=== PATIENT | female | born 1980 | race Caucasian/White ===

== ENCOUNTER → 2019-07-11 08:35 | Outpatient (BNVA) | payer MEDICAID, SELFPAY | PROVIDERS: Family Provider Family Medicine; PCP Family Medicine; Visit Provider Psychiatry & Neurology Psychiatry | DX: F43.12 Post-traumatic stress disorder, chronic (principal); F33.2 Major depressive disorder, recurrent severe without psychotic features; F17.200 Nicotine dependence, unspecified, uncomplicated | CPT/HCPCS: 99204 ==

== ENCOUNTER → 2019-08-08 07:33 | Outpatient (BNVA) | payer MEDICAID, SELFPAY | PROVIDERS: Family Provider Family Medicine; PCP Family Medicine; Visit Provider Psychiatry & Neurology Psychiatry | DX: F33.2 Major depressive disorder, recurrent severe without psychotic features (principal); F43.12 Post-traumatic stress disorder, chronic; F17.200 Nicotine dependence, unspecified, uncomplicated | CPT/HCPCS: 99213 ==

== ENCOUNTER → 2019-09-20 07:39 | Outpatient (BNVA) | payer MEDICAID, SELFPAY | PROVIDERS: Family Provider Family Medicine; PCP Family Medicine; Visit Provider Psychiatry & Neurology Psychiatry | DX: F33.2 Major depressive disorder, recurrent severe without psychotic features (principal); F43.12 Post-traumatic stress disorder, chronic; F17.200 Nicotine dependence, unspecified, uncomplicated | CPT/HCPCS: 99214 ==

== ENCOUNTER → 2019-10-17 09:31 | Outpatient (BNVA) | payer MEDICAID, SELFPAY | PROVIDERS: Family Provider Family Medicine; PCP Family Medicine; Referring Provider Nurse Practitioner Family; Visit Provider Anesthesiology Pain Medicine | DX: M47.816 Spondylosis without myelopathy or radiculopathy, lumbar region (principal); M51.36 Other intervertebral disc degeneration, lumbar region; M54.16 Radiculopathy, lumbar region; E66.9 Obesity, unspecified; F17.210 Nicotine dependence, cigarettes, uncomplicated | CPT/HCPCS: 99204 ==

== ENCOUNTER 2019-10-30 07:44 | Outpatient (CLI) | payer MEDICAID, SELFPAY ==
--- NOTE | 2019-10-30 08:00 | XR_ITS ---
WS: [id number] LUMBAR SPINE FLEXION AND EXTENSION TECHNIQUE: 3 views of the lumbar spine: Lateral neutral, flexion, and extension views. CLINICAL INFORMATION: pain COMPARISON: None. FINDINGS: Slight exaggeration normal lumbar lordosis. No instability on flexion-extension. Moderate facet arthr opathy L5-S1. XR/XR lumbar spine f/e only [id number] IMPRESSION: 1. Slight exaggeration normal lumbar lordosis. 2. No instability on flexion-extension.
--- NOTE | 2019-10-30 08:35 | MR_ITS ---
WS: [id number] MRI LUMBAR SPINE NONCONTRAST TECHNIQUE: Sagittal T1, T2 and STIR imaging. Axial T1 and T2 imaging. CLINICAL INFORMATION: RADICULOPATHY, LUMBAR REGION COMPARISON: None. FINDINGS: Mild lumbar curve. No acute compression. No high-grade central canal stenosis. Tiny central protrusio ns at T10-T11 and T12-L1. Mild central canal stenosis at T10-11. L1-L2: Normal. L2-L3: Tiny left foraminal protrusion with slight contact of the exiting left L2 nerve root. Mild lef t foraminal narrowing. Spinal canal and foramen are patent. Mild facet arthropathy. L3-L4: Mild annular bulging. Mild facet arthropathy. Small left foraminal protrusion contacts the exi ting left L3 nerve root. Mild left foraminal narrowing. L4-L5: Mild annular bulging. Left foraminal disc osteophyte protrusion contacts the exiting left L4 n erve root with mild left foraminal narrowing. Right foramen is patent. Spinal canal is patent. Mild f acet arthropathy. L5-S1: Broad-based central disc protrusion contacts the traversing S1 nerve roots bilaterally. Mild f acet arthropathy. Foramen are patent. 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 MR/MR lumbar spine wo con* [id number] IMPRESSION: 1. Mild lumbar curve. No acute compression. No high-grade central canal stenos is. 2. Small left foraminal protrusions L2-3 and L3-4 with contact of the exiting left L2 and L3 nerve roots respectively, worse at left L3-4. 3. Left eccentric disc bulging L4-5 with mild left foraminal narrowing. 4. Broad-based shallow central protrusion L5-S1 slightly contacts the traversi ng S1 nerve roots bilaterally. 5. Small central protrusion T10-11 with mild central canal stenosis. 6. Mild to moderate facet arthropathy L3-L5.
== END 2019-10-30 07:45 | disposition home or self-care (01) ==
PROVIDERS: Family Provider Nurse Practitioner Family; PCP Nurse Practitioner Family; Visit Provider Anesthesiology Pain Medicine
DX: M54.16 Radiculopathy, lumbar region (principal); M51.26 Other intervertebral disc displacement, lumbar region; M51.27 Other intervertebral disc displacement, lumbosacral region; M51.24 Other intervertebral disc displacement, thoracic region; M47.816 Spondylosis without myelopathy or radiculopathy, lumbar region
CPT/HCPCS: 72120; 72148

== ENCOUNTER → 2019-11-01 10:44 | Outpatient (BNVA) | payer MEDICAID, SELFPAY | PROVIDERS: Family Provider Family Medicine; PCP Nurse Practitioner Family; Visit Provider Anesthesiology Pain Medicine | DX: M51.36 Other intervertebral disc degeneration, lumbar region (principal); M47.816 Spondylosis without myelopathy or radiculopathy, lumbar region; M54.9 Dorsalgia, unspecified; E66.9 Obesity, unspecified; F17.210 Nicotine dependence, cigarettes, uncomplicated | CPT/HCPCS: 99213; 99214 ==

== ENCOUNTER → 2019-11-08 08:03 | Outpatient (BNVA) | payer MEDICAID, SELFPAY | PROVIDERS: Family Provider Family Medicine; PCP Nurse Practitioner Family; Visit Provider Psychiatry & Neurology Psychiatry | DX: F33.2 Major depressive disorder, recurrent severe without psychotic features (principal); F43.12 Post-traumatic stress disorder, chronic | CPT/HCPCS: 99213 ==

== ENCOUNTER → 2019-11-29 12:38 | Outpatient (BNVA) | payer MEDICAID, SELFPAY | PROVIDERS: Family Provider Family Medicine; PCP Nurse Practitioner Family; Visit Provider Anesthesiology Pain Medicine | DX: M47.816 Spondylosis without myelopathy or radiculopathy, lumbar region (principal); M51.36 Other intervertebral disc degeneration, lumbar region; M54.9 Dorsalgia, unspecified; E66.9 Obesity, unspecified; F17.210 Nicotine dependence, cigarettes, uncomplicated; Z79.891 Long term (current) use of opiate analgesic | CPT/HCPCS: 99213 ==

== ENCOUNTER → 2019-12-10 08:04 | Outpatient (BNVA) | payer MEDICAID, SELFPAY | PROVIDERS: Family Provider Family Medicine; PCP Nurse Practitioner Family; Visit Provider Psychiatry & Neurology Psychiatry | DX: F43.12 Post-traumatic stress disorder, chronic (principal); F33.2 Major depressive disorder, recurrent severe without psychotic features; M54.16 Radiculopathy, lumbar region; M54.9 Dorsalgia, unspecified; Z79.891 Long term (current) use of opiate analgesic | CPT/HCPCS: 64483; 64484; 99213; J1030; J3490 ==

== ENCOUNTER → 2019-12-24 09:20 | Outpatient (BNVA) | payer MEDICAID, SELFPAY | PROVIDERS: Family Provider Family Medicine; PCP Nurse Practitioner Family; Visit Provider Anesthesiology Pain Medicine | DX: M51.36 Other intervertebral disc degeneration, lumbar region (principal); M47.816 Spondylosis without myelopathy or radiculopathy, lumbar region; M54.9 Dorsalgia, unspecified; E66.9 Obesity, unspecified; Z79.891 Long term (current) use of opiate analgesic | CPT/HCPCS: 99213 ==

== ENCOUNTER → 2020-01-09 09:10 | Outpatient (BNVA) | payer MEDICAID, SELFPAY | PROVIDERS: Family Provider Family Medicine; PCP Nurse Practitioner Family; Visit Provider Psychiatry & Neurology Psychiatry | DX: F43.12 Post-traumatic stress disorder, chronic (principal); F33.2 Major depressive disorder, recurrent severe without psychotic features | CPT/HCPCS: 99213 ==

== ENCOUNTER 2020-01-16 16:11 | Emergency (ER) | payer MEDICAID, SELFPAY ==
[2020-01-16 16:13] VITALS: BP 152/110; PULSE 115; RESP 18; TEMP 36.4; O2SAT 96; BMI 48.4
--- NOTE | 2020-01-16 16:24 | W.ED.CHESTPA ---
Documented by User: Rock Nicholson DO 01/19/20 19:18 HPI - Chest Pain General: Chief Complaint: Chest Pain Stated Complaint: dizzy/chest pains Time Seen by Provider: 01/16/20 16:13 History of Present Illness: HPI narrative: 39-year-old female presents complaining of chest pain and dizziness. The dizziness is been ongoing for a while but today began to get chest pain. She relates it to recent medication change. She has been very vertiginous she is also had a headache and some myalgias as well generally not feeling well flulike symptoms. Noticed that when she turns her head to the left or right she has increased symptoms. Her symptoms are primarily vertiginous. MD complaint: chest discomfort Onset (ago): day(s) Timing of current episode: episodic Onset: other (Change in posture or turning the head induces dizziness.) Pain location: left chest Pain radiation: none Quality: heaviness Relieving factors: nothing Exacerbating factors: nothing Associated symptoms: Reports nausea; Deny abdominal pain, diaphoresis, dyspnea, fever(s), leg edema, palpitations, sense of impending doom, syncope or vomiting Treatment prior to arrival: none Review of Systems Const: Denies: fever(s) or diaphoresis ENMT: Denies: throat pain, ear or mastoid pain, nasal discharge or nasal congestion Card: Denies: palpitations or syncope Resp: Denies: dyspnea GI: Reports: nausea; Denies: abdominal pain or vomiting : Denies: flank pain, difficulty voiding, dysuria, urinary frequency or urinary urgency Skin/Breast: Denies: rash or pruritus PFSH ED PFSH: Medical History Diabetes Fibromyalgia Hypercholesterolemia Hypertension Obesity Polycystic ovarian syndrome Surgical History H/O section x 2 H/O dilation and curettage H/O excision of dermoid cyst 04/02/19 FINAL DIAGNOSIS Skin, right thigh, excision: Benign skin with dermal fibrosis and mild chronic inflammation Comment- The changes noted microscopically are consistent with a history of a cyst which has a ruptured and caused fibrosis. No malignancy is identified. Edited by: 04/03/19 León BEARD H/O excision of mass infected sebaceous cyst thigh History of appendectomy History of excision of pilonidal cyst 05/10/18 FINAL DIAGNOSIS Skin and soft tissue, perineal, cyst excision: 1. Epidermal cyst with? ?intense, surrounding mixed inflammation and histiocytic giant cell reaction. Edited by: 05/12/18 - 0935 ANDERSON Family History Other Diabetes Heart disease Denies family history of Anesthesia complication Bleeding disorder Social History Smoking and tobacco status: former smoker Quit status (tobacco): has quit using tobacco Second hand smoke exposure: Yes Alcohol intake: never Household members: spouse Marital status: Current occupational status: disabled History of recent travel: No Physical Exam Const: COMMON NORMALS: no acute distress GENERAL APPEARANCE: cooperative and comfortable ORIENTATION/CONSCIOUSNESS: Yes awake, Yes oriented to person, Yes oriented to place and Yes oriented to time HENMT: COMMON NORMALS: normocephalic, atraumatic, hearing grossly normal bilaterally, external ears normal, EAC's normal, TM's normal bilaterally, Normal nasal mucous membranes and turbinates present, moist oral mucous membranes and oropharynx normal HEAD & SCALP: normocephalic and atraumatic NOSE: Normal nasal mucous membranes and turbinates present EXTERNAL EAR: Yes external ears normal EXTERNAL AUDITORY CANAL: EAC's normal TYMPANIC MEMBRANE: TM's normal bilaterally Eye: COMMON NORMALS: Equal, round and reactive pupils present, EOMs intact bilaterally, conjunctivae normal and no scleral icterus CONJUNCTIVA: Yes conjunctivae normal PUPIL: Yes Equal, round and reactive pupils present Neck/C-Spine: COMMON NORMALS: full ROM, no lymphadenopathy, supple and no JVD Lymph: LYMPHATIC: no lymphadenopathy noted and no lymphedema noted Resp: COMMON NORMALS: normal respiratory effort, No retractions, No use of accessory muscles and clear to auscultation bilaterally AUSCULTATION: clear to auscultation bilaterally Cardio: COMMON NORMALS: no JVD, regular rate, regular rhythm and No murmurs present (Cardio) RATE: regular rate RHYTHM: regular rhythm GI: COMMON NORMALS: Soft to palpation and No hepatosplenomegaly present AUSCULTATION: Yes normoactive bowel sounds PALPATION: Yes Soft to palpation, No Tenderness to palpation present (GI), No Guarding due to palpation present (GI) and Yes No hepatosplenomegaly present Extremity: COMMON NORMALS: normal to inspection, capillary refill normal, no clubbing, cyanosis or edema, no calf tenderness and no pedal edema Neuro: SENSORIUM/ORIENTATION: Yes oriented to person, Yes oriented to place and Yes oriented to time Skin: COMMON NORMALS: no rashes or lesions noted GENERAL SKIN EXAM: no rashes or lesions noted Course Vital Signs: Vital signs: Vital Signs Temperature 97.5 F L 01/16/20 16:13 Pulse Rate 92 01/16/20 21:06 Respiratory Rate 18 01/16/20 21:06 Blood Pressure 138/78 01/16/20 21:06 Pulse Oximetry 96 01/16/20 21:06 MDM - Chest Pain MDM Narrative: Medical decision making narrative: Care turned over to Dr. Guillaume at change of shift see his notes for definitive diagnosis and disposition Lab Data: Labs: Lab Results 01/16/20 01/16/20 01/16/20 Range/Units 16:52 16:52 16:52 WBC 9.1 (4.0-10.0) 10^3/ uL RBC 4.86 (4.1-5.3) 10^6/u L Hgb 15.1 (11.5-15.3) g/dL Hct 46.3 (37.0-47.0) % MCV 95.3 (81-99) fL MCH 31.1 (28.0-34.0) pg MCHC 32.6 (30.0-36.0) g/dL RDW 12.2 (12.1-15.1) % Plt Count 195 (130-400) 10^3/c mm MPV 11.4 H (7.4-10.4) fL Neut % (Auto) 54.1 % Lymph % (Auto) 37.4 % Hill % (Auto) 5.8 % Eos % (Auto) 1.9 % Baso % (Auto) 0.3 % Neut # (Auto) 4.92 (1.8-7.7) 10^3/u L Lymph # (Auto) 3.4 (0.8-4.8) 10^3/u L Hill # (Auto) 0.5 (0.2-0.9) 10^3/u L Eos # (Auto) 0.2 (0.0-0.8) 10^3/u L Baso # (Auto) 0.0 (0.0-0.1) 10^3/u L Nucleated RBC % (a uto) 0 % Nucleated RBCs # 0.0 /100WBC Fibrinogen 403 (174-498) mg/dL D-Dimer 1.39 H (0-0.59) ug/mIFE U Sodium 135 L (136-145) mmol/L Potassium 4.5 (3.5-5.1) mmol/L Chloride 99 (98-107) mmol/L Carbon Dioxide 24 (22-29) mmol/L Anion Gap 16.5 (5-19) BUN 11 (6-20) mg/dL Creatinine 0.5 (0.5-0.9) mg/dL GFR Calculation 136.0 H (90-130) mL/min Glucose 270 H (65-115) mg/dL Calculated Osmolal ity 289 (285-295) mOsm/k g Lactic Acid (0.5-2.2) mmol/L Lactic Acid (Sepsi s) (0.5-2.2) mmol/L Calcium 9.4 (8.5-10.5) mg/dL Ferritin 463 H (15-150) ng/mL Total Bilirubin 0.3 (0.15-1.2) mg/dL AST 40 H (0-32) U/L ALT 53 H (0-33) U/L Alkaline Phosphata se 100 (35-105) IU/L Lactate Dehydrogen ase 204 (135-214) U/L Troponin T Baselin e (0-10) ng/L Troponin T 120 Min [place] (0-10) ng/L Delta Troponin T (0-10) ABS# C-Reactive Protein 13.1 H (0.0-4.9) mg/L Total Protein 7.8 (6.6-8.7) g/dL Albumin 4.5 (3.5-5.2) g/dL Globulin 3.3 (1.3-4.6) g/dL Procalcitonin 0.06 (0-0.5) ng/mL Urine Color (Yellow) Urine Appearance (CLEAR) Urine pH (5-7) Ur Specific Gravit y (1.005-1.030) Urine Protein (Negative) Urine Glucose (UA) (Normal) Urine Ketones (Negative) Urine Blood (Negative) Urine Nitrate (Negative) Urine Bilirubin (Negative) Urine Urobilinogen (Negative) mg/dL Ur Leukocyte Shae ase (Negative) SARS-CoV-2 RNA (RT -PCR) (NOT DETECTED) SARS-CoV-2 Ag (Rap id) (Negative) 01/16/20 01/16/20 01/16/20 Range/Units 16:52 16:52 17:15 WBC (4.0-10.0) 10^3/ uL RBC (4.1-5.3) 10^6/u L Hgb (11.5-15.3) g/dL Hct (37.0-47.0) % MCV (81-99) fL MCH (28.0-34.0) pg MCHC (30.0-36.0) g/dL RDW (12.1-15.1) % Plt Count (130-400) 10^3/c mm MPV (7.4-10.4) fL Neut % (Auto) % Lymph % (Auto) % Hill % (Auto) % Eos % (Auto) % Baso % (Auto) % Neut # (Auto) (1.8-7.7) 10^3/u L Lymph # (Auto) (0.8-4.8) 10^3/u L Hill # (Auto) (0.2-0.9) 10^3/u L Eos # (Auto) (0.0-0.8) 10^3/u L Baso # (Auto) (0.0-0.1) 10^3/u L Nucleated RBC % (a uto) % Nucleated RBCs # /100WBC Fibrinogen (174-498) mg/dL D-Dimer (0-0.59) ug/mIFE U Sodium (136-145) mmol/L Potassium (3.5-5.1) mmol/L Chloride (98-107) mmol/L Carbon Dioxide (22-29) mmol/L Anion Gap (5-19) BUN (6-20) mg/dL Creatinine (0.5-0.9) mg/dL GFR Calculation (90-130) mL/min Glucose (65-115) mg/dL Calculated Osmolal ity (285-295) mOsm/k g Lactic Acid 3.5 H (0.5-2.2) mmol/L Lactic Acid (Sepsi s) (0.5-2.2) mmol/L Calcium (8.5-10.5) mg/dL Ferritin (15-150) ng/mL Total Bilirubin (0.15-1.2) mg/dL AST (0-32) U/L ALT (0-33) U/L Alkaline Phosphata se (35-105) IU/L Lactate Dehydrogen ase (135-214) U/L Troponin T Baselin e 6 (0-10) ng/L Troponin T 120 Min [place] (0-10) ng/L Delta Troponin T (0-10) ABS# C-Reactive Protein (0.0-4.9) mg/L Total Protein (6.6-8.7) g/dL Albumin (3.5-5.2) g/dL Globulin (1.3-4.6) g/dL Procalcitonin (0-0.5) ng/mL Urine Color (Yellow) Urine Appearance (CLEAR) Urine pH (5-7) Ur Specific Gravit y (1.005-1.030) Urine Protein (Negative) Urine Glucose (UA) (Normal) Urine Ketones (Negative) Urine Blood (Negative) Urine Nitrate (Negative) Urine Bilirubin (Negative) Urine Urobilinogen (Negative) mg/dL Ur Leukocyte Shae ase (Negative) SARS-CoV-2 RNA (RT -PCR) Not detected (NOT DETECTED) SARS-CoV-2 Ag (Rap id) (Negative) 01/16/20 01/16/20 01/16/20 Range/Units 18:36 19:15 19:15 WBC (4.0-10.0) 10^3/ uL RBC (4.1-5.3) 10^6/u L Hgb (11.5-15.3) g/dL Hct (37.0-47.0) % MCV (81-99) fL MCH (28.0-34.0) pg MCHC (30.0-36.0) g/dL RDW (12.1-15.1) % Plt Count (130-400) 10^3/c mm MPV (7.4-10.4) fL Neut % (Auto) % Lymph % (Auto) % Hill % (Auto) % Eos % (Auto) % Baso % (Auto) % Neut # (Auto) (1.8-7.7) 10^3/u L Lymph # (Auto) (0.8-4.8) 10^3/u L Hill # (Auto) (0.2-0.9) 10^3/u L Eos # (Auto) (0.0-0.8) 10^3/u L Baso # (Auto) (0.0-0.1) 10^3/u L Nucleated RBC % (a uto) % Nucleated RBCs # /100WBC Fibrinogen (174-498) mg/dL D-Dimer (0-0.59) ug/mIFE U Sodium (136-145) mmol/L Potassium (3.5-5.1) mmol/L Chloride (98-107) mmol/L Carbon Dioxide (22-29) mmol/L Anion Gap (5-19) BUN (6-20) mg/dL Creatinine (0.5-0.9) mg/dL GFR Calculation (90-130) mL/min Glucose (65-115) mg/dL Calculated Osmolal ity (285-295) mOsm/k g Lactic Acid (0.5-2.2) mmol/L Lactic Acid (Sepsi s) 3.3 H (0.5-2.2) mmol/L Calcium (8.5-10.5) mg/dL Ferritin (15-150) ng/mL Total Bilirubin (0.15-1.2) mg/dL AST (0-32) U/L ALT (0-33) U/L Alkaline Phosphata se (35-105) IU/L Lactate Dehydrogen ase (135-214) U/L Troponin T Baselin e (0-10) ng/L Troponin T 120 Min [place] 6.00 (0-10) ng/L Delta Troponin T 0 (0-10) ABS# C-Reactive Protein (0.0-4.9) mg/L Total Protein (6.6-8.7) g/dL Albumin (3.5-5.2) g/dL Globulin (1.3-4.6) g/dL Procalcitonin (0-0.5) ng/mL Urine Color (Yellow) Urine Appearance (CLEAR) Urine pH (5-7) Ur Specific Gravit y (1.005-1.030) Urine Protein (Negative) Urine Glucose (UA) (Normal) Urine Ketones (Negative) Urine Blood (Negative) Urine Nitrate (Negative) Urine Bilirubin (Negative) Urine Urobilinogen (Negative) mg/dL Ur Leukocyte Shae ase (Negative) SARS-CoV-2 RNA (RT -PCR) (NOT DETECTED) SARS-CoV-2 Ag (Rap id) Negative (Negative) 01/16/20 Range/Units 20:16 WBC (4.0-10.0) 10^3/ uL RBC (4.1-5.3) 10^6/u L Hgb (11.5-15.3) g/dL Hct (37.0-47.0) % MCV (81-99) fL MCH (28.0-34.0) pg MCHC (30.0-36.0) g/dL RDW (12.1-15.1) % Plt Count (130-400) 10^3/c mm MPV (7.4-10.4) fL Neut % (Auto) % Lymph % (Auto) % Hill % (Auto) % Eos % (Auto) % Baso % (Auto) % Neut # (Auto) (1.8-7.7) 10^3/u L Lymph # (Auto) (0.8-4.8) 10^3/u L Hill # (Auto) (0.2-0.9) 10^3/u L Eos # (Auto) (0.0-0.8) 10^3/u L Baso # (Auto) (0.0-0.1) 10^3/u L Nucleated RBC % (a uto) % Nucleated RBCs # /100WBC Fibrinogen (174-498) mg/dL D-Dimer (0-0.59) ug/mIFE U Sodium (136-145) mmol/L Potassium (3.5-5.1) mmol/L Chloride (98-107) mmol/L Carbon Dioxide (22-29) mmol/L Anion Gap (5-19) BUN (6-20) mg/dL Creatinine (0.5-0.9) mg/dL GFR Calculation (90-130) mL/min Glucose (65-115) mg/dL Calculated Osmolal ity (285-295) mOsm/k g Lactic Acid (0.5-2.2) mmol/L Lactic Acid (Sepsi s) (0.5-2.2) mmol/L Calcium (8.5-10.5) mg/dL Ferritin (15-150) ng/mL Total Bilirubin (0.15-1.2) mg/dL AST (0-32) U/L ALT (0-33) U/L Alkaline Phosphata se (35-105) IU/L Lactate Dehydrogen ase (135-214) U/L Troponin T Baselin e (0-10) ng/L Troponin T 120 Min [place] (0-10) ng/L Delta Troponin T (0-10) ABS# C-Reactive Protein (0.0-4.9) mg/L Total Protein (6.6-8.7) g/dL Albumin (3.5-5.2) g/dL Globulin (1.3-4.6) g/dL Procalcitonin (0-0.5) ng/mL Urine Color Yellow (Yellow) Urine Appearance Clear (CLEAR) Urine pH 7 (5-7) Ur Specific Gravit y 1.020 (1.005-1.030) Urine Protein Neg (Negative) Urine Glucose (UA) Norm (Normal) Urine Ketones Negative (Negative) Urine Blood Neg (Negative) Urine Nitrate Negative (Negative) Urine Bilirubin Neg (Negative) Urine Urobilinogen Norm (Negative) mg/dL Ur Leukocyte Shae ase Negative (Negative) SARS-CoV-2 RNA (RT -PCR) (NOT DETECTED) SARS-CoV-2 Ag (Rap id) (Negative) Discharge Plan Discharge Patient Disposition: Left Against Medical Advice Clinical Impression: Vertigo, Acute viral syndrome Condition: Stable Prescriptions: New Zofran 4 mg tablet 4 mg PO Q6H PRN (Reason: nausea and vomiting) Qty: 20 RF: 0 cefdinir 300 mg capsule 300 mg PO Q12H 10 Days Qty: 20 RF: 0 meclizine 25 mg tablet 25 mg PO QID PRN (Reason: dizziness) Qty: 30 RF: 0 No Action gabapentin 800 mg tablet 800 mg PO TID RF: 0 duloxetine 30 mg capsule,delayed release(DR/EC) 30 mg PO DAILY Qty: 30 RF: 2 duloxetine 60 mg capsule,delayed release(DR/EC) 60 mg PO DAILY Qty: 30 RF: 2 Bydureon 2 mg/0.65 mL pen injector 2 mg SUBCUT Q7D RF: 0 hydrocodone-acetaminophen [[place]] 5-325 mg tablet 1 tab PO TID 30 Days Qty: 90 RF: 0 tizanidine 4 mg tablet 4 mg PO BID PRN (Reason: muscle spasticity) Qty: 60 RF: 0 atorvastatin 10 mg tablet 10 mg PO DAILY RF: 0 Levemir U-100 Insulin 100 unit/mL solution 65 unit SUBCUT BID RF: 0 lisinopril 10 mg tablet 10 mg PO DAILY RF: 0 Narcan 4 mg/actuation spray,non-aerosol 4 mg INTRANASAL Q2M PRN (Reason: OVERDOSE) RF: 0 insulin aspart U-100 [Novolog U-100 Insulin aspart] 100 unit/mL solution 22 unit SUBCUT .COMPLEX RF: 0 glucagon HCl 1 mg/mL recon soln 1 mg SUBCUT DAILY PRN (Reason: hypoglycemia) RF: 0 meloxicam [Mobic] 7.5 mg tablet 7.5 mg PO DAILY RF: 0 betamethasone valerate 0.1 % cream 1 applic TOPICAL BID PRN (Reason: Skin Irritation) RF: 0 metformin 1,000 mg tablet 1,000 mg PO BID RF: 0 fenofibrate 54 mg Tablet 54 mg PO DAILY RF: 0 Discharge Orders: Discharge Order (Routine); Ordered 01/16/20 Ordered By: Stephanie Rhodes Referrals: Radha Garces MD [Family Provider] - 1-3 days BLANCA VALLE FNP [Primary Care Provider] - Discharge Diet: Advance as tolerated Discharge Activity: Increase activity as tolerated Patient Instructions: Vertigo (ED), Viral Syndrome (ED), Dizziness (ED) Activity Restrictions/Additional Instructions: You're leaving AGAINST MEDICAL ADVICE and are at risk for or severe permanent disability by doing so. You are more than welcome to return at any time for recheck and for further evaluation and care suture change you change your mind. A complete evaluation has not been performed to see what is causing all of your symptoms. You put yourself at risk by leaving without complete evaluation. If you change your mind and wish to return you are welcome to do so at any time. Be certain to follow-up with your doctor as soon as possible for recheck. Stand Alone Forms: Against Medical Advice Discharge Date/Time: 01/16/20 21:18 Sign Out Sign Out Data: Patient Sign Out occurred on 01/16/20 at 18:21. Patient's care was discussed, and care was transferred from to Stephanie Rhodes. Coding Level of Care Code ED [employer] for Chg Fwd Exam Comprehensive Documented by User: Stephanie Rhodes 01/16/20 21:32 HPI - Chest Pain General: Chief Complaint: Chest Pain Stated Complaint: dizzy/chest pains Time Seen by Provider: 01/16/20 16:13 PFSH ED PFSH: Medical History Diabetes Fibromyalgia Hypercholesterolemia Hypertension Obesity Polycystic ovarian syndrome Surgical History H/O section x 2 H/O dilation and curettage H/O excision of dermoid cyst 04/02/19 FINAL DIAGNOSIS Skin, right thigh, excision: Benign skin with dermal fibrosis and mild chronic inflammation Comment- The changes noted microscopically are consistent with a history of a cyst which has a ruptured and caused fibrosis. No malignancy is identified. Edited by: 04/03/19 - 1057 CHIRAG H/O excision of mass infected sebaceous cyst thigh History of appendectomy History of excision of pilonidal cyst 05/10/18 FINAL DIAGNOSIS Skin and soft tissue, perineal, cyst excision: 1. Epidermal cyst with? ?intense, surrounding mixed inflammation and histiocytic giant cell reaction. Edited by: 05/12/18 - 1265 ANDERSON Family History Other Diabetes Heart disease Denies family history of Anesthesia complication Bleeding disorder Social History Smoking and tobacco status: former smoker Quit status (tobacco): has quit using tobacco Second hand smoke exposure: Yes Alcohol intake: never Household members: spouse Marital status: Current occupational status: disabled History of recent travel: No Course Vital Signs: Vital signs: Vital Signs Temperature 97.5 F L 01/16/20 16:13 Pulse Rate 92 01/16/20 21:06 Respiratory Rate 18 01/16/20 21:06 Blood Pressure 138/78 01/16/20 21:06 Pulse Oximetry 96 01/16/20 21:06 MDM - Chest Pain MDM Narrative: Medical decision making narrative: 1844 -Case turned over to me at change of shift from Dr. Nicholson. Please see his note for his history, physical exam and medical decision-making notes. Patient claims to me that she has had vertigo symptoms present for the past 2 weeks. She describes room spinning dizziness with nausea made worse by moving her head in certain positions. She also complains today her symptoms are worse and she has generalized malaise. She has a cough that is been chronic mostly at night she admits to being a previous smoker. The chest pain described as sharp in nature in the mid chest that is made worse with movement. It is worse in certain positions. She denies any chest pain at rest. She denies fever, loss of sense of taste, loss of sense of smell or sore throat. To me the patient's primary complaint is worsening dizziness today. 2051 -the patient at this time is insisting upon discharge. She states that she wants to go home and take her regular medicines as she needs them for her discomfort. She declines to stay and let me medicate her for pain. Patient states that this time she adamantly wants to be discharged. I have informed her that I am still awaiting some lab results including a repeat lactate to rule out serious cause of infection. Patient refuses to stay. She believes she will be fine at home. Her second lactate did improve and densa with hardly any fluids being given. She is now had almost 2 L of fluid and is feeling better. She is ambulatory here and her dizziness is better. The patient at this time says she will follow-up with her doctors but she declines any further evaluation and care. She clearly has the capacity to make this decision. She shows no sign of impairment. She is asked multiple questions regarding her care and reason with this information and still decided that she wants to be discharged. The patient was welcome to return if she changed her mind. Lab Data: Attestation: I reviewed the patient's lab results. Labs: Lab Results 01/16/20 01/16/20 01/16/20 Range/Units 16:52 16:52 16:52 WBC 9.1 (4.0-10.0) 10^3/ uL RBC 4.86 (4.1-5.3) 10^6/u L Hgb 15.1 (11.5-15.3) g/dL Hct 46.3 (37.0-47.0) % MCV 95.3 (81-99) fL MCH 31.1 (28.0-34.0) pg MCHC 32.6 (30.0-36.0) g/dL RDW 12.2 (12.1-15.1) % Plt Count 195 (130-400) 10^3/c mm MPV 11.4 H (7.4-10.4) fL Neut % (Auto) 54.1 % Lymph % (Auto) 37.4 % Hill % (Auto) 5.8 % Eos % (Auto) 1.9 % Baso % (Auto) 0.3 % Neut # (Auto) 4.92 (1.8-7.7) 10^3/u L Lymph # (Auto) 3.4 (0.8-4.8) 10^3/u L Hill # (Auto) 0.5 (0.2-0.9) 10^3/u L Eos # (Auto) 0.2 (0.0-0.8) 10^3/u L Baso # (Auto) 0.0 (0.0-0.1) 10^3/u L Nucleated RBC % (a uto) 0 % Nucleated RBCs # 0.0 /100WBC Fibrinogen 403 (174-498) mg/dL D-Dimer 1.39 H (0-0.59) ug/mIFE U Sodium 135 L (136-145) mmol/L Potassium 4.5 (3.5-5.1) mmol/L Chloride 99 (98-107) mmol/L Carbon Dioxide 24 (22-29) mmol/L Anion Gap 16.5 (5-19) BUN 11 (6-20) mg/dL Creatinine 0.5 (0.5-0.9) mg/dL GFR Calculation 136.0 H (90-130) mL/min Glucose 270 H (65-115) mg/dL Calculated Osmolal ity 289 (285-295) mOsm/k g Lactic Acid (0.5-2.2) mmol/L Lactic Acid (Sepsi s) (0.5-2.2) mmol/L Calcium 9.4 (8.5-10.5) mg/dL Ferritin 463 H (15-150) ng/mL Total Bilirubin 0.3 (0.15-1.2) mg/dL AST 40 H (0-32) U/L ALT 53 H (0-33) U/L Alkaline Phosphata se 100 (35-105) IU/L Lactate Dehydrogen ase 204 (135-214) U/L Troponin T Baselin e (0-10) ng/L Troponin T 120 Min [place] (0-10) ng/L Delta Troponin T (0-10) ABS# C-Reactive Protein 13.1 H (0.0-4.9) mg/L Total Protein 7.8 (6.6-8.7) g/dL Albumin 4.5 (3.5-5.2) g/dL Globulin 3.3 (1.3-4.6) g/dL Procalcitonin 0.06 (0-0.5) ng/mL Urine Color (Yellow) Urine Appearance (CLEAR) Urine pH (5-7) Ur Specific Gravit y (1.005-1.030) Urine Protein (Negative) Urine Glucose (UA) (Normal) Urine Ketones (Negative) Urine Blood (Negative) Urine Nitrate (Negative) Urine Bilirubin (Negative) Urine Urobilinogen (Negative) mg/dL Ur Leukocyte Shae ase (Negative) SARS-CoV-2 RNA (RT -PCR) (NOT DETECTED) SARS-CoV-2 Ag (Rap id) (Negative) 01/16/20 01/16/20 01/16/20 Range/Units 16:52 16:52 17:15 WBC (4.0-10.0) 10^3/ uL RBC (4.1-5.3) 10^6/u L Hgb (11.5-15.3) g/dL Hct (37.0-47.0) % MCV (81-99) fL MCH (28.0-34.0) pg MCHC (30.0-36.0) g/dL RDW (12.1-15.1) % Plt Count (130-400) 10^3/c mm MPV (7.4-10.4) fL Neut % (Auto) % Lymph % (Auto) % Hill % (Auto) % Eos % (Auto) % Baso % (Auto) % Neut # (Auto) (1.8-7.7) 10^3/u L Lymph # (Auto) (0.8-4.8) 10^3/u L Hill # (Auto) (0.2-0.9) 10^3/u L Eos # (Auto) (0.0-0.8) 10^3/u L Baso # (Auto) (0.0-0.1) 10^3/u L Nucleated RBC % (a uto) % Nucleated RBCs # /100WBC Fibrinogen (174-498) mg/dL D-Dimer (0-0.59) ug/mIFE U Sodium (136-145) mmol/L Potassium (3.5-5.1) mmol/L Chloride (98-107) mmol/L Carbon Dioxide (22-29) mmol/L Anion Gap (5-19) BUN (6-20) mg/dL Creatinine (0.5-0.9) mg/dL GFR Calculation (90-130) mL/min Glucose (65-115) mg/dL Calculated Osmolal ity (285-295) mOsm/k g Lactic Acid 3.5 H (0.5-2.2) mmol/L Lactic Acid (Sepsi s) (0.5-2.2) mmol/L Calcium (8.5-10.5) mg/dL Ferritin (15-150) ng/mL Total Bilirubin (0.15-1.2) mg/dL AST (0-32) U/L ALT (0-33) U/L Alkaline Phosphata se (35-105) IU/L Lactate Dehydrogen ase (135-214) U/L Troponin T Baselin e 6 (0-10) ng/L Troponin T 120 Min [place] (0-10) ng/L Delta Troponin T (0-10) ABS# C-Reactive Protein (0.0-4.9) mg/L Total Protein (6.6-8.7) g/dL Albumin (3.5-5.2) g/dL Globulin (1.3-4.6) g/dL Procalcitonin (0-0.5) ng/mL Urine Color (Yellow) Urine Appearance (CLEAR) Urine pH (5-7) Ur Specific Gravit y (1.005-1.030) Urine Protein (Negative) Urine Glucose (UA) (Normal) Urine Ketones (Negative) Urine Blood (Negative) Urine Nitrate (Negative) Urine Bilirubin (Negative) Urine Urobilinogen (Negative) mg/dL Ur Leukocyte Shae ase (Negative) SARS-CoV-2 RNA (RT -PCR) Not detected (NOT DETECTED) SARS-CoV-2 Ag (Rap id) (Negative) 01/16/20 01/16/20 01/16/20 Range/Units 18:36 19:15 19:15 WBC (4.0-10.0) 10^3/ uL RBC (4.1-5.3) 10^6/u L Hgb (11.5-15.3) g/dL Hct (37.0-47.0) % MCV (81-99) fL MCH (28.0-34.0) pg MCHC (30.0-36.0) g/dL RDW (12.1-15.1) % Plt Count (130-400) 10^3/c mm MPV (7.4-10.4) fL Neut % (Auto) % Lymph % (Auto) % Hill % (Auto) % Eos % (Auto) % Baso % (Auto) % Neut # (Auto) (1.8-7.7) 10^3/u L Lymph # (Auto) (0.8-4.8) 10^3/u L Hill # (Auto) (0.2-0.9) 10^3/u L Eos # (Auto) (0.0-0.8) 10^3/u L Baso # (Auto) (0.0-0.1) 10^3/u L Nucleated RBC % (a uto) % Nucleated RBCs # /100WBC Fibrinogen (174-498) mg/dL D-Dimer (0-0.59) ug/mIFE U Sodium (136-145) mmol/L Potassium (3.5-5.1) mmol/L Chloride (98-107) mmol/L Carbon Dioxide (22-29) mmol/L Anion Gap (5-19) BUN (6-20) mg/dL Creatinine (0.5-0.9) mg/dL GFR Calculation (90-130) mL/min Glucose (65-115) mg/dL Calculated Osmolal ity (285-295) mOsm/k g Lactic Acid (0.5-2.2) mmol/L Lactic Acid (Sepsi s) 3.3 H (0.5-2.2) mmol/L Calcium (8.5-10.5) mg/dL Ferritin (15-150) ng/mL Total Bilirubin (0.15-1.2) mg/dL AST (0-32) U/L ALT (0-33) U/L Alkaline Phosphata se (35-105) IU/L Lactate Dehydrogen ase (135-214) U/L Troponin T Baselin e (0-10) ng/L Troponin T 120 Min [place] 6.00 (0-10) ng/L Delta Troponin T 0 (0-10) ABS# C-Reactive Protein (0.0-4.9) mg/L Total Protein (6.6-8.7) g/dL Albumin (3.5-5.2) g/dL Globulin (1.3-4.6) g/dL Procalcitonin (0-0.5) ng/mL Urine Color (Yellow) Urine Appearance (CLEAR) Urine pH (5-7) Ur Specific Gravit y (1.005-1.030) Urine Protein (Negative) Urine Glucose (UA) (Normal) Urine Ketones (Negative) Urine Blood (Negative) Urine Nitrate (Negative) Urine Bilirubin (Negative) Urine Urobilinogen (Negative) mg/dL Ur Leukocyte Shae ase (Negative) SARS-CoV-2 RNA (RT -PCR) (NOT DETECTED) SARS-CoV-2 Ag (Rap id) Negative (Negative) 01/16/20 Range/Units 20:16 WBC (4.0-10.0) 10^3/ uL RBC (4.1-5.3) 10^6/u L Hgb (11.5-15.3) g/dL Hct (37.0-47.0) % MCV (81-99) fL MCH (28.0-34.0) pg MCHC (30.0-36.0) g/dL RDW (12.1-15.1) % Plt Count (130-400) 10^3/c mm MPV (7.4-10.4) fL Neut % (Auto) % Lymph % (Auto) % Hill % (Auto) % Eos % (Auto) % Baso % (Auto) % Neut # (Auto) (1.8-7.7) 10^3/u L Lymph # (Auto) (0.8-4.8) 10^3/u L Hill # (Auto) (0.2-0.9) 10^3/u L Eos # (Auto) (0.0-0.8) 10^3/u L Baso # (Auto) (0.0-0.1) 10^3/u L Nucleated RBC % (a uto) % Nucleated RBCs # /100WBC Fibrinogen (174-498) mg/dL D-Dimer (0-0.59) ug/mIFE U Sodium (136-145) mmol/L Potassium (3.5-5.1) mmol/L Chloride (98-107) mmol/L Carbon Dioxide (22-29) mmol/L Anion Gap (5-19) BUN (6-20) mg/dL Creatinine (0.5-0.9) mg/dL GFR Calculation (90-130) mL/min Glucose (65-115) mg/dL Calculated Osmolal ity (285-295) mOsm/k g Lactic Acid (0.5-2.2) mmol/L Lactic Acid (Sepsi s) (0.5-2.2) mmol/L Calcium (8.5-10.5) mg/dL Ferritin (15-150) ng/mL Total Bilirubin (0.15-1.2) mg/dL AST (0-32) U/L ALT (0-33) U/L Alkaline Phosphata se (35-105) IU/L Lactate Dehydrogen ase (135-214) U/L Troponin T Baselin e (0-10) ng/L Troponin T 120 Min [place] (0-10) ng/L Delta Troponin T (0-10) ABS# C-Reactive Protein (0.0-4.9) mg/L Total Protein (6.6-8.7) g/dL Albumin (3.5-5.2) g/dL Globulin (1.3-4.6) g/dL Procalcitonin (0-0.5) ng/mL Urine Color Yellow (Yellow) Urine Appearance Clear (CLEAR) Urine pH 7 (5-7) Ur Specific Gravit y 1.020 (1.005-1.030) Urine Protein Neg (Negative) Urine Glucose (UA) Norm (Normal) Urine Ketones Negative (Negative) Urine Blood Neg (Negative) Urine Nitrate Negative (Negative) Urine Bilirubin Neg (Negative) Urine Urobilinogen Norm (Negative) mg/dL Ur Leukocyte Shae ase Negative (Negative) SARS-CoV-2 RNA (RT -PCR) (NOT DETECTED) SARS-CoV-2 Ag (Rap id) (Negative) Imaging Data^: CXR: Attestation: I personally reviewed and interpreted this imaging study as follows: My impression: No acute cardiopulmonary finding CT Chest: Radiologist's impression: [address] [address] [address] Scan Report Signed Patient: Bre Calix Unit #: [id number] : 1980 Age/Sex: 39 / F ADM Date: 01/16/20 Loc: ER Room/Bed: Attending Dr: Ordering Provider/Ordering MD: Rock Nicholson DO Date of Service: 01/16/20 Procedure(s): CT angio chest PE [facility] [address] Accession Number(s): [id number] Report Number: [id number] PROCEDURE INFORMATION: Exam: CT Angiography Chest With Contrast Exam date and time: 01/16/2020 6:14 PM Age: 39 years old Clinical indication: Cough and shortness of breath; Additional info: Cehst heaviness, dyspnea TECHNIQUE: Imaging protocol: Computed tomographic angiography of the chest with intravenous contrast. 3D rendering (Not supervised by radiologist): MIP and/or 3D reconstructed images were created by the technologist. Radiation optimization: All CT scans at this facility use at least one of these dose optimization techniques: automated exposure control; mA and/or kV adjustment per patient size (includes targeted exams where dose is matched to clinical indication); or iterative reconstruction. Contrast material: OMNI 350; Contrast volume: 69 ml; Contrast route: INTRAVENOUS (IV); COMPARISON: CR XR chest 1V portable [id number] 01/16/2020 5:11 PM RADIATION DOSE METRICS: Total DLP (mGy-cm): 577.91 FINDINGS: Pulmonary arteries: Normal. No pulmonary emboli. Aorta: Unremarkable. No aortic aneurysm. No aortic dissection. Lungs: Unremarkable. No consolidation. No masses. Pleural space: Unremarkable. No pneumothorax. No pleural effusion. Heart: Unremarkable. No cardiomegaly. No pericardial effusion. Lymph nodes: Unremarkable. No enlarged lymph nodes. Bones/joints: There is no evidence for acute fracture or malalignment. Degenerative change is identified in the spine. Soft tissues: Unremarkable. CT/CT angio chest PE protcl [id number] IMPRESSION: There is no evidence for a pulmonary embolus. Radiation Dose CTDIVOL = (mGy): DLP = 577.91 (mGy-cm) Dictated By: Cris Espinoza MD Signed By: Cris Espinoza MD Signed Date/Time: 01/16/201836 DD/ 35 EKG Data^: EKG 1: Attestation: I personally reviewed and interpreted this EKG as follows: EKG interpretation date: 01/16/20 EKG interpretation time: 16:20 Interpretation: Normal sinus rhythm at 91 beats a minute, no blocks, normal intervals, normal axis, nonspecific ST-T wave changes, low voltages. EKG 2: Attestation: I personally reviewed and interpreted this EKG as follows: EKG interpretation date: 01/16/20 EKG interpretation time: 19:26 Interpretation: Normal sinus rhythm at 80 beats minute, normal axis, no blocks, normal intervals. Nonspecific ST-T wave changes. Discharge Plan Discharge Patient Disposition: Left Against Medical Advice Clinical Impression: Vertigo, Acute viral syndrome Condition: Stable Prescriptions: New Zofran 4 mg tablet 4 mg PO Q6H PRN (Reason: nausea and vomiting) Qty: 20 RF: 0 cefdinir 300 mg capsule 300 mg PO Q12H 10 Days Qty: 20 RF: 0 meclizine 25 mg tablet 25 mg PO QID PRN (Reason: dizziness) Qty: 30 RF: 0 No Action gabapentin 800 mg tablet 800 mg PO TID RF: 0 duloxetine 30 mg capsule,delayed release(DR/EC) 30 mg PO DAILY Qty: 30 RF: 2 duloxetine 60 mg capsule,delayed release(DR/EC) 60 mg PO DAILY Qty: 30 RF: 2 Bydureon 2 mg/0.65 mL pen injector 2 mg SUBCUT Q7D RF: 0 hydrocodone-acetaminophen [[place]] 5-325 mg tablet 1 tab PO TID 30 Days Qty: 90 RF: 0 tizanidine 4 mg tablet 4 mg PO BID PRN (Reason: muscle spasticity) Qty: 60 RF: 0 atorvastatin 10 mg tablet 10 mg PO DAILY RF: 0 Levemir U-100 Insulin 100 unit/mL solution 65 unit SUBCUT BID RF: 0 lisinopril 10 mg tablet 10 mg PO DAILY RF: 0 Narcan 4 mg/actuation spray,non-aerosol 4 mg INTRANASAL Q2M PRN (Reason: OVERDOSE) RF: 0 insulin aspart U-100 [Novolog U-100 Insulin aspart] 100 unit/mL solution 22 unit SUBCUT .COMPLEX RF: 0 glucagon HCl 1 mg/mL recon soln 1 mg SUBCUT DAILY PRN (Reason: hypoglycemia) RF: 0 meloxicam [Mobic] 7.5 mg tablet 7.5 mg PO DAILY RF: 0 betamethasone valerate 0.1 % cream 1 applic TOPICAL BID PRN (Reason: Skin Irritation) RF: 0 metformin 1,000 mg tablet 1,000 mg PO BID RF: 0 fenofibrate 54 mg Tablet 54 mg PO DAILY RF: 0 Discharge Orders: Discharge Order (Routine); Ordered 01/16/20 Ordered By: Stephanie Rhodes Referrals: Radha Garces MD [Family Provider] - 1-3 days BLANCA VALLE FNP [Primary Care Provider] - Discharge Diet: Advance as tolerated Discharge Activity: Increase activity as tolerated Patient Instructions: Vertigo (ED), Viral Syndrome (ED), Dizziness (ED) Activity Restrictions/Additional Instructions: You're leaving AGAINST MEDICAL ADVICE and are at risk for or severe permanent disability by doing so. You are more than welcome to return at any time for recheck and for further evaluation and care suture change you change your mind. A complete evaluation has not been performed to see what is causing all of your symptoms. You put yourself at risk by leaving without complete evaluation. If you change your mind and wish to return you are welcome to do so at any time. Be certain to follow-up with your doctor as soon as possible for recheck. Stand Alone Forms: Against Medical Advice Discharge Date/Time: 01/16/20 21:18 Sign Out Sign Out Data: Patient Sign Out occurred on 01/16/20 at 18:21. Patient's care was discussed, and care was transferred from to Stephanie Rhodes. 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
--- NOTE | 2020-01-16 16:44 | XR_ITS ---
WS: [id number] Portable AP upright chest, 01/16/2020 Clinical Data: cough Comparison: PA and lateral chest, 12/29/2018. Findings: No nodules, masses or effusions are seen. The heart is normal. The pulmonary vascularity is not increased. No pneumonia or pneumothorax is seen. XR/XR chest 1V portable [id number] Impression: Negative chest.
--- NOTE | 2020-01-16 16:49 | CTR_ITS ---
PROCEDURE INFORMATION: Exam: CT Head Without Contrast Exam date and time: 01/16/2020 5:01 PM Age: 39 years old Clinical indication: Dizziness; Additional info: Dizzyness TECHNIQUE: Imaging protocol: Computed tomography of the head without contrast. Radiation optimization: All CT scans at this facility use at least one of these dose optimization techniques: automated exposure control; mA and/or kV adjustment per patient size (includes targeted exams where dose is matched to clinical indication); or iterative reconstruction. COMPARISON: No relevant prior studies available. RADIATION DOSE METRICS: Total DLP (mGy-cm): 858.11 FINDINGS: Brain: Mild volume loss and white matter disease are identified. There is no acute infarct or edema. No hemorrhage. Ventricles: No ventriculomegaly. Bones/joints: Unremarkable. No acute fracture. Paranasal sinuses: Visualized sinuses are unremarkable. No fluid levels. Mastoid air cells: Visualized mastoid air cells are well aerated. Soft tissues: Unremarkable. CT/CT head wo con* [id number] IMPRESSION: There are no acute concerning abnormalities. Radiation Dose CTDIVOL = (mGy): DLP = 858.11 (mGy-cm)
[2020-01-16 17:00] LABS: Basophils % 0.3 %; Eosinophils # 0.2 10^3/uL (0.0-0.8); Eosinophils % 1.9 %; Hematocrit 46.3 % (37.0-47.0); Hemoglobin 15.1 g/dL (11.5-15.3); Lymphocytes # 3.4 10^3/uL (0.8-4.8); Lymphocytes % 37.4 %; Mean Corpuscular HGB Conc 32.6 g/dL (30.0-36.0); Mean Corpuscular Hemoglobin 31.1 pg (28.0-34.0); Mean Corpuscular Volume 95.3 fL (81-99); Mean Platelet Volume 11.4 fL (7.4-10.4); Monocytes # 0.5 10^3/uL (0.2-0.9); Monocytes % 5.8 %; Neutrophils # 4.92 10^3/uL (1.8-7.7); Neutrophils % 54.1 %; Nucleated Red Blood Cells % 0 %; Platelet Count 195 10^3/cmm (130-400); Red Blood Count 4.86 10^6/uL (4.1-5.3); Red Cell Distribution Width 12.2 % (12.1-15.1); White Blood Count 9.1 10^3/uL (4.0-10.0)
[2020-01-16 17:21] LABS: D Dimer 1.39 ug/mIFEU (0-0.59)
[2020-01-16 17:22] LABS: Fibrinogen 403 mg/dL (174-498)
[2020-01-16 17:27] LABS: Lactic Sepsis W/Reflex 3.5 mmol/L (0.5-2.2)
[2020-01-16 17:30] LABS: Procalcitonin 0.06 ng/mL (0-0.5)
[2020-01-16 17:41] LABS: Alanine Aminotransferase 53 U/L (0-33); Albumin Level 4.5 g/dL (3.5-5.2); Alkaline Phosphatase 100 IU/L (35-105); Aspartate Amino Transferase 40 U/L (0-32); Blood Urea Nitrogen 11 mg/dL (6-20); C Reactive Protein 13.1 mg/L (0.0-4.9); Calcium 9.4 mg/dL (8.5-10.5); Carbon Dioxide 24 mmol/L (22-29); Chloride 99 mmol/L (98-107); Ferritin 463 ng/mL (15-150); Globulin 3.3 g/dL (1.3-4.6); Glucose 270 mg/dL (65-115); Osmolality Calculated 289 mOsm/kg (285-295); Sodium 135 mmol/L (136-145); Total Bilirubin 0.3 mg/dL (0.15-1.2); Total Protein 7.8 g/dL (6.6-8.7)
[2020-01-16 17:43] LABS: Anion Gap 16.5 (5-19); Lactate Dehydrogenase 204 U/L (135-214); Potassium 4.5 mmol/L (3.5-5.1)
--- NOTE | 2020-01-16 17:49 | CTR_ITS ---
PROCEDURE INFORMATION: Exam: CT Angiography Chest With Contrast Exam date and time: 01/16/2020 6:14 PM Age: 39 years old Clinical indication: Cough and shortness of breath; Additional info: Cehst heaviness, dyspnea TECHNIQUE: Imaging protocol: Computed tomographic angiography of the chest with intravenous contrast. 3D rendering (Not supervised by radiologist): MIP and/or 3D reconstructed images were created by the technologist. Radiation optimization: All CT scans at this facility use at least one of these dose optimization techniques: automated exposure control; mA and/or kV adjustment per patient size (includes targeted exams where dose is matched to clinical indication); or iterative reconstruction. Contrast material: OMNI 350; Contrast volume: 69 ml; Contrast route: INTRAVENOUS (IV); COMPARISON: CR XR chest 1V portable [id number] 01/16/2020 5:11 PM RADIATION DOSE METRICS: Total DLP (mGy-cm): 577.91 FINDINGS: Pulmonary arteries: Normal. No pulmonary emboli. Aorta: Unremarkable. No aortic aneurysm. No aortic dissection. Lungs: Unremarkable. No consolidation. No masses. Pleural space: Unremarkable. No pneumothorax. No pleural effusion. Heart: Unremarkable. No cardiomegaly. No pericardial effusion. Lymph nodes: Unremarkable. No enlarged lymph nodes. Bones/joints: There is no evidence for acute fracture or malalignment. Degenerative change is identified in the spine. Soft tissues: Unremarkable. CT/CT angio chest PE protcl [id number] IMPRESSION: There is no evidence for a pulmonary embolus. Radiation Dose CTDIVOL = (mGy): DLP = 577.91 (mGy-cm)
[2020-01-16] MEDS: iohexol 350 mg/mL 100 mL Btl IV (18:25)
[2020-01-16 18:36] VITALS: BP 130/102; PULSE 101; RESP 16; O2SAT 96
[2020-01-16 18:42] LABS: Reflex Lactate Order REFLEX LACTIC ORDERD
--- NOTE | 2020-01-16 18:55 | ECG_ITS ---
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 Measurements Intervals [place] Rate: 91 P: 48 CT: 164 QRS: 102 QRSD: 97 T: 53 QT: 370 QTc: 457 Interpretive Statements SINUS RHYTHM RIGHT AXIS DEVIATION [QRS AXIS > 100] LOW QRS VOLTAGE IN PRECORDIAL LEADS [QRS DEFLECTION < 1.0 mV IN CHEST LEADS] Compared to ECG 02/17/2017 10:19:08 Right-axis deviation now present Electronically Signed On 01-17-2020 17:12:51 CDT by Lindsey Alvarez M.D. [id number] f
[2020-01-16 19:04] LABS: SARS Covid-2 Antigen Negative (Negative)
[2020-01-16 19:13] LABS: Troponin(5th) Baseline 6 ng/L (0-10)
[2020-01-16] MEDS: sodium chloride 0.9% 1,000 ML 999 ML IV ×3 (19:19→19:35)
[2020-01-16] MEDS: acetaminophen 500 mg Tablet 1000 MG PO (19:19)
[2020-01-16] MEDS: meclizine 25 mg tablet PO (19:20)
[2020-01-16] MEDS: ondansetron 2 mg/ML SDV 2 mL 4 MG IVP (19:20)
[2020-01-16 19:41] LABS: Lactic Acid level (Lactate) 3.3 mmol/L (0.5-2.2)
[2020-01-16 19:43] VITALS: BP 136/97; PULSE 89; RESP 18; O2SAT 95
[2020-01-16 19:43] LABS: Troponin 5 2HR Delta 0 ABS# (0-10)
[2020-01-16 20:22] LABS: Add Urine Microscopic? NO
[2020-01-16 20:41] LABS: Bilirubin Urine Neg (Negative); Blood Urine Neg (Negative); Glucose Urine UA Norm (Normal); Ketones Urine Negative (Negative); Leukocyte Esterase Urine Negative (Negative); Nitrate Urine Negative (Negative); Protein Urine Neg (Negative); Urine Appearance Clear (CLEAR); Urine Color Yellow (Yellow); Urobilinogen Urine Norm (Negative); pH Urine 7 (5-7)
--- NOTE | 2020-01-16 20:55 | ECG_ITS ---
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 Measurements Intervals [place] Rate: 80 P: 28 GA: 166 QRS: 69 QRSD: 84 T: 44 QT: 360 QTc: 417 Interpretive Statements SINUS RHYTHM LOW QRS VOLTAGE IN PRECORDIAL LEADS [QRS DEFLECTION < 1.0 mV IN CHEST LEADS] POSSIBLE ANTERIOR MYOCARDIAL INFARCTION , OF INDETERMINATE AGE [30 ms Q WAVE IN V3/V4, OR R < 0.2 mV IN V4] Compared to ECG 02/17/2017 10:19:08 Myocardial infarct finding now present Electronically Signed On 01-17-2020 17:17:41 CDT by Lindsey Alvarez M.D. [email or web address] hospitalOurcast[facility].[employer]/store/OM/[id number]
[2020-01-16 21:06] VITALS: BP 138/78; PULSE 92; RESP 18; O2SAT 96
[2020-01-16] MEDS: cefdinir 300 MG CAPSULE PO (21:07)
[2020-01-18 13:13] LABS: Quest SARS-CoV-2 RNA NOT DETECTED (NOT DETECTED)
--- NOTE | 2020-01-18 16:42 | PC.NURSE ---
pt was called and given the results of her covid test
== END 2020-01-16 21:18 | disposition left against medical advice (07) ==
PROVIDERS: Family Medicine; Emergency Provider Emergency Medicine; Family Provider Family Medicine; PCP Nurse Practitioner Family
DX: R42 Dizziness and giddiness (principal); B34.9 Viral infection, unspecified; Z79.4 Long term (current) use of insulin; Z53.21 Procedure and treatment not carried out due to patient leaving prior to being seen by health care provider; Z87.891 Personal history of nicotine dependence; E11.9 Type 2 diabetes mellitus without complications; I10 Essential (primary) hypertension
CPT/HCPCS: 12345; 36415; 70450; 71045; 71275; 80053; 81003; 82728; 83605; 83615; 84145; 84484; 85025; 85378; 85384; 86140; 87426; 87635; 93005; 96361; 96374; 99283; 99284; J2405; J7030; J8597; Q9967

== ENCOUNTER → 2020-01-29 13:46 | Outpatient (BNVA) | payer MEDICAID, SELFPAY | PROVIDERS: Family Provider Family Medicine; PCP Nurse Practitioner Family; Visit Provider Anesthesiology Pain Medicine | DX: M47.816 Spondylosis without myelopathy or radiculopathy, lumbar region (principal); M51.36 Other intervertebral disc degeneration, lumbar region; M54.9 Dorsalgia, unspecified; E66.9 Obesity, unspecified; Z79.891 Long term (current) use of opiate analgesic | CPT/HCPCS: 99213 ==

== ENCOUNTER → 2020-02-11 12:40 | Outpatient (BNVA) | payer MEDICAID, SELFPAY | PROVIDERS: Family Provider Family Medicine; PCP Nurse Practitioner Family; Visit Provider Anesthesiology Pain Medicine | DX: M47.816 Spondylosis without myelopathy or radiculopathy, lumbar region (principal); M54.9 Dorsalgia, unspecified; Z79.891 Long term (current) use of opiate analgesic | CPT/HCPCS: 64493; 64494; 64495; J3490 ==

== ENCOUNTER → 2020-02-21 09:14 | Outpatient (BNVA) | payer MEDICAID, SELFPAY | PROVIDERS: Family Provider Family Medicine; PCP Nurse Practitioner Family; Visit Provider Psychiatry & Neurology Psychiatry | DX: F33.2 Major depressive disorder, recurrent severe without psychotic features (principal); F43.12 Post-traumatic stress disorder, chronic | CPT/HCPCS: 99213 ==

== ENCOUNTER → 2020-02-25 10:05 | Outpatient (BNVA) | payer MEDICAID, SELFPAY | PROVIDERS: Family Provider Family Medicine; PCP Nurse Practitioner Family; Visit Provider Anesthesiology Pain Medicine | DX: M51.36 Other intervertebral disc degeneration, lumbar region (principal); M47.816 Spondylosis without myelopathy or radiculopathy, lumbar region; M54.9 Dorsalgia, unspecified; E66.9 Obesity, unspecified; Z79.891 Long term (current) use of opiate analgesic | CPT/HCPCS: 99213 ==

== ENCOUNTER 2020-03-05 08:27 | Outpatient (CLI) | payer MEDICAID, SELFPAY ==
--- NOTE | 2020-03-05 08:30 | FL_ITS ---
WS: [id number] Barium swallow and esophagram, upper GI series with air, 03/05/2020 Clinical Data: K21.9 Gastro-esophageal reflux disease without esophagitis Comparison: None. Fluoroscopy time: 1.0 minutes. Findings: The patient swallowed the thick and thin barium, and it flowed to the hypopharynx without hesitation. No stricture, mass, polyp or erosion was seen. The barium into the esophagus and there was normal motility throughout. No hiatal hernia, stricture, polyp, mass, erosion or ulcer was noted. Minimal reflux was present. The barium passed into the stomach which was well distended. No erosion, polyp, mass or deformity cou ld be seen. No gastric ulcer was present. Barium then passed into the duodenal bulb which distended normally without ulceration. There was a di verticulum from the superior aspect of the third part of the duodenum. The proximal small bowel is normal. FL/FL upper GI w air* [id number] Impression: 1. Minimal gastroesophageal reflux. 2. Duodenal diverticulum.
== END 2020-03-05 08:28 | disposition home or self-care (01) ==
LOC: RADWPI 08:29
PROVIDERS: PCP Nurse Practitioner Family; Visit Provider Surgery
DX: K21.9 Gastro-esophageal reflux disease without esophagitis (principal)
CPT/HCPCS: 74246

== ENCOUNTER → 2020-03-24 10:40 | Outpatient (BNVA) | payer MEDICAID, SELFPAY | PROVIDERS: PCP Nurse Practitioner Family; Visit Provider Anesthesiology Pain Medicine | DX: M47.816 Spondylosis without myelopathy or radiculopathy, lumbar region (principal); M51.36 Other intervertebral disc degeneration, lumbar region; M25.561 Pain in right knee; M25.551 Pain in right hip; M54.9 Dorsalgia, unspecified; E66.9 Obesity, unspecified; Z79.891 Long term (current) use of opiate analgesic | CPT/HCPCS: 99213; 99214 ==

== ENCOUNTER → 2020-03-31 08:48 | Outpatient (BNVA) | payer MEDICAID, SELFPAY | PROVIDERS: PCP Nurse Practitioner Family; Visit Provider Nurse Practitioner Psychiatric/Mental Health | DX: F43.12 Post-traumatic stress disorder, chronic (principal); F33.2 Major depressive disorder, recurrent severe without psychotic features; G89.29 Other chronic pain | CPT/HCPCS: 99213 ==

== ENCOUNTER → 2020-04-21 10:39 | Outpatient (BNVA) | payer MEDICAID, SELFPAY | PROVIDERS: PCP Nurse Practitioner Family; Visit Provider Anesthesiology Pain Medicine | DX: M54.9 Dorsalgia, unspecified (principal); E66.9 Obesity, unspecified; M47.816 Spondylosis without myelopathy or radiculopathy, lumbar region; M51.36 Other intervertebral disc degeneration, lumbar region | CPT/HCPCS: 99213 ==

== ENCOUNTER 2020-05-02 11:07 | Outpatient (CLI) | payer MEDICAID, SELFPAY ==
--- NOTE | 2020-05-02 11:13 | MM_ITS ---
WS: [id number] Bilateral screening digital mammogram, 05/02/2020 Clinical Data: SCREENING Comparison: None. Findings: The breast parenchymal pattern shows fat replacement. No spiculated masses or clustered calcification s are seen. There are no secondary signs of carcinoma. MM/[place] [id number] Impression: 1. Negative bilateral mammogram with no prior exam for review. 2. Recommend annual screening mammograms. BIRADS: 1-Negative FOLLOW UP: 1 Year Follow-up The CAD chemical checker was used.
== END 2020-05-02 11:08 | disposition home or self-care (01) ==
LOC: RADSHAW 11:09
PROVIDERS: PCP Physician Assistant; Visit Provider Physician Assistant
DX: Z12.31 Encounter for screening mammogram for malignant neoplasm of breast (principal); K21.9 Gastro-esophageal reflux disease without esophagitis
CPT/HCPCS: 77067; 87635

== ENCOUNTER 2020-05-07 08:13 | Day surgery (SDC) | payer MEDICAID, SELFPAY ==
[2020-05-05 13:00] VITALS: BMI 47.9
[2020-05-07 08:53] VITALS: BP 139/109; PULSE 86; RESP 18; TEMP 36.2; O2SAT 96
--- NOTE | 2020-05-07 08:55 | ANES.PREANE2 ---
Pre-Anesthetic Assessment Pre-Anesthetic Assessment: Height/Weight: Height 1.63 m Weight 126.552 kg Temp Pulse Resp BP Pulse Ox 97.1 F L 86 18 139/109 96 05/07/20 08:53 05/07/20 08:53 05/07/20 08:53 05/07/20 08:53 05/07/20 08:53 Preop Diagnosis: GERD associated with morbid obesity Proposed Procedure: Operation Date: 05/07/20 09:15 Proposed Procedures p EGD 79701 K21.9(Not Applicable) - Tyrone Ji MD Was Beta Clyde taken within 24 hours: N/A Last intake: Intake Last Liquid Date 05/06/20 Last Liquid Time 23:30 Last Solid Date 05/06/20 Last Solid Time 20:00 Social: Social History: Tobacco and No alcohol Exam: Pre-Anes Outpt Exam: alert, oriented x 3 and regular rate & rhythm Airway: Submandibular: WNL Cervical ROM: WNL MP: 2 Additional comments: upper edentulous, poor dentition on lower arch Pulmonary: Pulmonary: COPD CV/HEM: CV/HEM: HTN : : None reported Hepatic: Hepatic: None reported Metabolic: Metabolic: DM and Morbid obesity Musc/skel: Musc/skel: Fibromyalgia and Lower Back Pain Comments: Chronic pain/opioid Neuropsych: Neuropsych: Depression Anesthetic Plan: ASA status: 3 Anesthesia: MAC Risk of > 500 ml blood loss (7ml/kg in children): No PFSH Anesthesia PFSH: Medical History Diabetes Fibromyalgia Hypercholesterolemia Hypertension Obesity Polycystic ovarian syndrome Surgical History H/O section x 2 H/O dilation and curettage H/O excision of dermoid cyst 04/02/19 FINAL DIAGNOSIS Skin, right thigh, excision: Benign skin with dermal fibrosis and mild chronic inflammation Comment- The changes noted microscopically are consistent with a history of a cyst which has a ruptured and caused fibrosis. No malignancy is identified. Edited by: 04/03/19 - 1055 [id number] H/O excision of mass infected sebaceous cyst thigh History of appendectomy History of excision of pilonidal cyst 05/10/18 FINAL DIAGNOSIS Skin and soft tissue, perineal, cyst excision: 1. Epidermal cyst with? ?intense, surrounding mixed inflammation and histiocytic giant cell reaction. Edited by: 05/12/18 - 1067 ANDERSON Family History Other Diabetes Heart disease Denies family history of Anesthesia complication Bleeding disorder Social History Smoking and tobacco status: former smoker Quit status (tobacco): has quit using tobacco Second hand smoke exposure: Yes Alcohol intake: never Household members: spouse Marital status: Current occupational status: disabled History of recent travel: No Data Anesthesia Cardiac Studies: No Data to Display
--- NOTE | 2020-05-07 09:03 | W.PM.OPSUD ---
Surgery/Procedure H&P Update DATE OF PROCEDURE: May 07, 2020 DATE H&P PERFORMED: 04/24/20 H&P UPDATE INFORMATION: I have reviewed H&P completed within last 30 days, I have examined patient prior to procedure and No changes to prior documentation PREOP DIAGNOSIS: GERD associated with morbid obesity PRIMARY INDICATION FOR PROCEDURE: The same PLANNED PROCEDURE: Operation Date: 05/07/20 09:15 Proposed Procedures p EGD 94420 K21.9(Not Applicable) - Tyrone Ji MD
[2020-05-07 09:05] LABS: Glucose Point of Care 210 mg/dL (70-110)
[2020-05-07] MEDS: sodium chloride 0.9% 1,000 ML 30 ML IV (09:08)
[2020-05-07 09:53] VITALS: BP 117/86; PULSE 86; RESP 18; TEMP 36.5; O2SAT 92
[2020-05-07 10:07] VITALS: BP 131/91; PULSE 81; RESP 18; O2SAT 94
--- NOTE | 2020-05-07 10:55 | ANE.PACU2 ---
Inpatient post-anesthesia follow up: Airway intact: Yes Vital signs: Temperature 97.7 F Pulse Rate 81 Respiratory Rate 18 Blood Pressure 131/91 Pulse Oximetry 94 Oxygen Delivery Me thod Room Air Oxygen Flow Rate Fraction of Inspir ed Oxygen Hydration adequate: Yes Nausea and vomiting: No Pain level: 1 Mental status: Baseline
[2020-05-08 05:46] LABS: H. Pylori / CLO Test Positive
== END 2020-05-07 10:20 | disposition home or self-care (01) ==
PROVIDERS: PCP Physician Assistant; Visit Provider Surgery
PROC: 0DJ08ZZ Inspection of Upper Intestinal Tract, Via Natural or Artificial Opening Endoscopic (ICD-10-PCS; CPT 43235; principal; 2020-05-07 09:15)
DX: K21.9 Gastro-esophageal reflux disease without esophagitis (principal); E66.01 Morbid (severe) obesity due to excess calories; Z68.42 Body mass index [BMI] 45.0-49.9, adult; K29.70 Gastritis, unspecified, without bleeding; J44.9 Chronic obstructive pulmonary disease, unspecified; I10 Essential (primary) hypertension; E11.9 Type 2 diabetes mellitus without complications; M79.7 Fibromyalgia; F32.9 Major depressive disorder, single episode, unspecified; E28.2 Polycystic ovarian syndrome; Z87.891 Personal history of nicotine dependence
CPT/HCPCS: 12345; 36416; 43239; 81025; 82962; 87077; J2704; J3010; J7030

== ENCOUNTER → 2020-05-19 09:50 | Outpatient (BNVA) | payer MEDICAID, SELFPAY | PROVIDERS: PCP Physician Assistant; Visit Provider Anesthesiology Pain Medicine | DX: M54.9 Dorsalgia, unspecified (principal); M51.36 Other intervertebral disc degeneration, lumbar region; M47.816 Spondylosis without myelopathy or radiculopathy, lumbar region; E66.9 Obesity, unspecified; Z79.891 Long term (current) use of opiate analgesic | CPT/HCPCS: 99214 ==

== ENCOUNTER → 2020-05-27 13:55 | Outpatient (BNVA) | payer MEDICAID, SELFPAY | PROVIDERS: PCP Physician Assistant; Visit Provider Anesthesiology Pain Medicine | DX: M54.16 Radiculopathy, lumbar region (principal); M54.9 Dorsalgia, unspecified; Z79.891 Long term (current) use of opiate analgesic | CPT/HCPCS: 64483; 64484; J1100; J3490 ==

== ENCOUNTER → 2020-06-23 09:17 | Outpatient (BNVA) | payer MEDICAID, SELFPAY | PROVIDERS: PCP Physician Assistant; Visit Provider Anesthesiology Pain Medicine | DX: M54.9 Dorsalgia, unspecified (principal); E66.9 Obesity, unspecified; M47.816 Spondylosis without myelopathy or radiculopathy, lumbar region; M51.36 Other intervertebral disc degeneration, lumbar region; Z79.891 Long term (current) use of opiate analgesic | CPT/HCPCS: 99214 ==

== ENCOUNTER → 2020-08-01 10:30 | Outpatient (BNVA) | payer MEDICAID, SELFPAY | PROVIDERS: PCP Physician Assistant; Visit Provider Anesthesiology Pain Medicine | DX: M51.36 Other intervertebral disc degeneration, lumbar region (principal); M47.816 Spondylosis without myelopathy or radiculopathy, lumbar region; M54.9 Dorsalgia, unspecified; E66.9 Obesity, unspecified; Z79.891 Long term (current) use of opiate analgesic | CPT/HCPCS: 99214 ==

== ENCOUNTER → 2020-08-05 13:49 | Outpatient (BNVA) | payer MEDICAID, SELFPAY | PROVIDERS: PCP Physician Assistant; Visit Provider Anesthesiology Pain Medicine | DX: Z01.812 Encounter for preprocedural laboratory examination (principal); M54.16 Radiculopathy, lumbar region; E11.9 Type 2 diabetes mellitus without complications; M54.9 Dorsalgia, unspecified; Z79.891 Long term (current) use of opiate analgesic | CPT/HCPCS: 64483; 64484; J1100; J3490 ==

== ENCOUNTER → 2020-08-20 10:35 | Outpatient (BNVA) | payer MEDICAID, SELFPAY | PROVIDERS: PCP Physician Assistant; Visit Provider Anesthesiology Pain Medicine | DX: M51.36 Other intervertebral disc degeneration, lumbar region (principal); M47.816 Spondylosis without myelopathy or radiculopathy, lumbar region; M54.9 Dorsalgia, unspecified; E66.9 Obesity, unspecified; Z79.891 Long term (current) use of opiate analgesic | CPT/HCPCS: 99214 ==

== ENCOUNTER → 2020-09-19 10:09 | Outpatient (BNVA) | payer MEDICAID, SELFPAY | PROVIDERS: PCP Physician Assistant; Visit Provider Anesthesiology Pain Medicine | DX: M51.36 Other intervertebral disc degeneration, lumbar region (principal); M47.816 Spondylosis without myelopathy or radiculopathy, lumbar region; M54.9 Dorsalgia, unspecified; E66.9 Obesity, unspecified; Z79.891 Long term (current) use of opiate analgesic | CPT/HCPCS: 99214 ==

== ENCOUNTER 2020-10-08 11:39 | Outpatient (CLI) | payer MEDICAID, SELFPAY ==
[2020-10-08 12:50] LABS: INR 1.02 (0.8-1.2)
[2020-10-08 13:10] LABS: Parathyroid Hormone 32.6 pg/mL (15-65)
[2020-10-08 13:16] LABS: Basophils # 0.1 10^3/uL (0.0-0.1); Basophils % 0.7 %; Eosinophils # 0.1 10^3/uL (0.0-0.8); Eosinophils % 1.3 %; Hematocrit 41.6 % (37.0-47.0); Hemoglobin 13.6 g/dL (11.5-15.3); Lymphocytes # 3.1 10^3/uL (0.8-4.8); Lymphocytes % 37.1 %; Mean Corpuscular HGB Conc 32.7 g/dL (30.0-36.0); Mean Corpuscular Volume 94.8 fL (81-99); Mean Platelet Volume 11.3 fL (7.4-10.4); Monocytes # 0.5 10^3/uL (0.2-0.9); Monocytes % 5.5 %; Neutrophils # 4.64 10^3/uL (1.8-7.7); Neutrophils % 54.8 %; Nucleated Red Blood Cells % 0 %; Platelet Count 178 10^3/cmm (130-400); Red Blood Count 4.39 10^6/uL (4.1-5.3); Red Cell Distribution Width 12.6 % (12.1-15.1); White Blood Count 8.5 10^3/uL (4.0-10.0)
[2020-10-08 13:20] LABS: Alanine Aminotransferase 51 U/L (0-33); Albumin Level 4.2 g/dL (3.5-5.2); Alkaline Phosphatase 69 IU/L (35-105); Aspartate Amino Transferase 46 U/L (0-32); Blood Urea Nitrogen 13 mg/dL (6-20); Calcium 8.8 mg/dL (8.5-10.5); Carbon Dioxide 25 mmol/L (22-29); Chloride 103 mmol/L (98-107); Chol HDL Ratio 3.96 mg/dL (0.0-4.40); Cholesterol 99 mg/dL (0-200); Ferritin 609 ng/mL (15-150); Folate Level 10.8 ng/mL (4.8-37.3); Globulin 2.9 g/dL (1.3-4.6); Glomerular Filtration Rate 175.9 mL/min (90-130); Glucose 189 mg/dL (65-115); HDL Cholesterol 25 mg/dL (60-100); Iron 87 ug/dL (37-145); LDL Cholesterol Calculated 50 mg/dL (50-129); Magnesium 1.8 mg/dL (1.7-2.3); Osmolality Calculated 291 mOsm/kg (285-295); Percent Saturation 30.4 % (20-50); Phosphorus 2.8 mg/dL (2.5-4.5); Sodium 138 mmol/L (136-145); Thyroid Stimulating Hormone 0.34 uIU/mL (0.27-4.20); Total Bilirubin 0.3 mg/dL (0.15-1.2); Total Iron Binding Capacity 286 mcg/dl; Total Protein 7.1 g/dL (6.6-8.7); Triglycerides 120 mg/dL (0-150); Unsaturated Iron Binding 199 ug/dL (112-347); Vitamin B12 411 pg/mL (232-1245)
== END 2020-10-08 11:40 | disposition home or self-care (01) ==
PROVIDERS: PCP Physician Assistant; Visit Provider Surgery
DX: E66.9 Obesity, unspecified (principal)
CPT/HCPCS: 80053; 80061; 82310; 82607; 82728; 82746; 83540; 83550; 83735; 83970; 84100; 84443; 85025; 85610; 87635

== ENCOUNTER 2020-10-14 15:08 | Observation (INO) | payer MEDICAID, SELFPAY ==
[2020-10-10 11:24] VITALS: BMI 47.5
--- NOTE | 2020-10-10 11:51 | ANES.PREANE2 ---
Pre-Anesthetic Assessment Pre-Anesthetic Assessment: Height/Weight: Height 1.63 m Weight 125.645 kg Preop Diagnosis: GERD associated with morbid obesity Proposed Procedure: Operation Date: 10/14/20 12:40 Proposed Procedures p Laparoscopic Ventical Gastric Sleeve w/ EGD 96253 42305 E66.01(Not Applicable) - Tyrone Ji MD Was Beta Clyde taken within 24 hours: N/A Was Clonidine taken within 24 hours: N/A Social: Social History: Tobacco (quit 1 yr ago) and No alcohol Exam: Pre-Anes Outpt Exam: alert, oriented x 3 and regular rate & rhythm Airway: Submandibular: WNL Cervical ROM: WNL MP: 2 Dentition: Chipped and False (upper) Additional comments: Missing most on lower arch Pulmonary: Pulmonary: COPD CV/HEM: CV/HEM: HTN GI: GI: GERD Metabolic: Metabolic: DM and Morbid obesity Musc/skel: Musc/skel: Lower Back Pain and OA/DJD Comments: Chronic pain/opioid Neuropsych: Neuropsych: Anxiety and Depression Anesthetic Plan: ASA status: 3 Anesthesia: General Risk of > 500 ml blood loss (7ml/kg in children): No PFSH Anesthesia PFSH: Medical History Diabetes Fibromyalgia Hypercholesterolemia Hypertension Obesity Polycystic ovarian syndrome Surgical History H/O section x 2 H/O dilation and curettage H/O excision of dermoid cyst 04/02/19 FINAL DIAGNOSIS Skin, right thigh, excision: Benign skin with dermal fibrosis and mild chronic inflammation Comment- The changes noted microscopically are consistent with a history of a cyst which has a ruptured and caused fibrosis. No malignancy is identified. Edited by: 04/03/19 - 1055 CHIRAG H/O excision of mass infected sebaceous cyst thigh History of appendectomy History of excision of pilonidal cyst 05/10/18 FINAL DIAGNOSIS Skin and soft tissue, perineal, cyst excision: 1. Epidermal cyst with? ?intense, surrounding mixed inflammation and histiocytic giant cell reaction. Edited by: 05/12/18 - 0935 ANDERSON Family History Other Diabetes Heart disease Denies family history of Anesthesia complication Bleeding disorder Social History Smoking and tobacco status: former smoker Quit status (tobacco): has quit using tobacco Second hand smoke exposure: Yes Alcohol intake: never Household members: spouse Marital status: Current occupational status: disabled History of recent travel: No Female Reproductive History: Date of last menstrual period: 08/26/20 Data Anesthesia Cardiac Studies: No Data to Display
[2020-10-14] VITALS (23 sets, daily range): BP systolic 120–166; BP diastolic 74–103; PULSE 73–118; RESP 17–20; TEMP 36.1–37.7; O2SAT 91–95
[2020-10-14] MEDS: acetaminophen 1,000 MG/100 ML PIGGYBACK 400 MG IV ×2 (07:31→21:57)
[2020-10-14] MEDS: sodium chloride 0.9% 1,000 ML 30 ML IV (07:31)
[2020-10-14 07:34] LABS: Glucose Point of Care 154 mg/dL (70-110)
--- NOTE | 2020-10-14 07:35 | P.ANESUD_ITS ---
Pre-Anesthetic Update Pre-Anesthetic Assessment: Date of Surgery/Procedure: 10/14/20 Preop Sheeba gnosis: GERD associated with morbid obesity Proposed Procedure: Operation Date: 10/14/20 09:05 Proposed Procedures p Laparoscopic Ventical Gastric Sleeve w/ EGD 57283 52547 E66.01(Not Applicable) - Tyrone Ji MD Any changes to Pre-Anesthetic Assessment?: No Last Intake: Intake Last Liquid Date 10/13/20 Last Liquid Time 22:30 Last Solid Date 09/30/20 Last Solid Time 22:30 Labs Last 48hrs: Laboratory Results - last 48 hr 10/14/20 07:27 POC Glucose 154 H Vitals: Temperature 97.2 F L 10/14/20 07:03 Pulse Rate 100 10/14/20 07:03 Pulse Rhythm 10/14/20 07:13 Respiratory Rate 18 10/14/20 07:03 Blood Pressure 139/98 10/14/20 07:03 Blood Pressure Suzan n 111 10/14/20 07:03 Pulse Oximetry 95 10/14/20 07:03 Oxygen Delivery Me thod 10/14/20 07:13 Exam: Pre-Anes Outpt Exam: alert, oriented x 3, clear to auscultation bilaterally and regular rate & rhythm Cardiac Studies: No Data to Display
[2020-10-14] MEDS: pantoprazole 40 mg SDV IVP (07:38)
[2020-10-14] MEDS: scopolamine 1.5 Patch 1 PATCH TRANSDERMA (07:38)
[2020-10-14] MEDS: heparin 5,000 unit/mL INJ 1 mL 5000 UNIT SUBCUT (07:42)
--- NOTE | 2020-10-14 08:24 | W.PM.OPSUD ---
Surgery/Procedure H&P Update DATE OF PROCEDURE: October 14, 2020 DATE H&P PERFORMED: 09/24/20 H&P UPDATE INFORMATION: I have reviewed H&P completed within last 30 days, I have examined patient prior to procedure and Changes to prior documentation as noted here (Patient lost about 10 pounds over 2 weeks on liquid protein diet. Patient is aware that at the beginning of the surgery showed the liver is continue to be enlarged and become cumbersome to achieve safe procedure we may abort. Patient agrees on the plan of care as well as her spouse.) PREOP DIAGNOSIS: Morbid obesity PRIMARY INDICATION FOR PROCEDURE: The same PLANNED PROCEDURE: Operation Date: 10/14/20 09:05 Proposed Procedures p Laparoscopic Ventical Gastric Sleeve w/ EGD 18030 43153 E66.01(Not Applicable) - Tyrone Ji MD
--- NOTE | 2020-10-14 12:26 | PM.OP ---
Operative Report Date of procedure: October 14, 2020 Pre-op Diagnosis: Morbid obesity Post-op diagnosis: same Post-op Findings: Intra-abdominal adhesions towards the pelvis Procedure Done: Laparoscopic sleeve gastrectomy with intraoperative EGD Implants: 2 pieces of Surgicel towards the splenic hilum Specimens removed/disposition: Subtotal gastrectomy status post gastric sleeve sutures marked proximal Pathology: Subtotal gastrectomy Surgeon: Tyrone Ji Supervisor Telephone Clerks: electrophysiology technician Margarito Circulating nurse Aisha Malone Anesthesia: General (STEVE Valle and Dr. To) Estimated blood loss (mL): 50 IV fluids (mL): 1,600 Urine output (mL): 1,000 Condition: stable Disposition: floor Brief History: Morbid obesity. Full H&P informed consent per chart Procedure: Procedure: Patient was identified in holding area , appropriate pharmacologic DVT prophylaxis was given and preoperative IV fluid hydration, patient was then taken to the operating room where the patient was placed in supine position, intubated by anesthesia prophylactic antibiotics were given per protocol,Time-out was done verifying the patient's name/date of /planned procedure and destination after the procedure, all were in agreement.SCDs confirmed to be functioning, and beta dago protocol was confirmed. A Jeffries catheter was inserted by the circulating nurse revealing clear urine. A foot board was applied to secure the patient while the patient is placed in reversed Trendelenburg, all pressure points were padded, and the patient was appropriately secured to the table, anesthesia was asked to rotate the table back and forth to verify that the patient is appropriately secured, and that was the case. The abdomen was prepped and draped under the usual sterile technique. A 1 cm transverse incision was made with a 15 blade scalpel approximately 15 cm below the xiphoid process and 3 cm left of the midline.A 12 mm optical trocar port was placed under direct vision into the peritoneal cavity without intial evidence of injury to peritoneal structures upon entry. The peritoneal cavity was insufflated with carbon dioxide gas up to 15 mmHg pressure.A 45? angle laparoscopy was placed through the port into the peritoneal cavity there was no significant blood, fluid, or evidence of intra-abdominal injury under direct visualization,Longer trocars were then used;a 12 mm trocar port was placed in the right epigastric region and a fourth 5 mm trocar port was placed in the mid epigastric region more caudad than and medial to the previous port. A 5 mm trocar port was placed in the left lateral flank and additional 5 mm trocar was inserted midway between the left lateral flank trocar and the initial 12 mm trocar. I lifted the omentum up to make sure there were no injuries encountered from the initial trocar insertion, the underlying transverse colon and small bowel viscera were normal. Noticed to have some omental adhesions towards the pelvis A subxiphoid stab incision was made and dissection into the peritoneum with 5 mm obturator. A grasping laparoscopic clamp was inserted through here and clamped to the right tarun of the diaphragm to elevate The liver for the entirety of the case. All trocars inserted were long trocars due to the thick layer of subcutaneous tissue that the patient has. Patient was then placed in the reversed Trendelenburg Following this, the greater curvature of the stomach was freed from the omentum using the harmonic scalpel. This division included the short gastric vessels proximally. This dissection was carried from approximately 4 cm-6 cm proximal to the pylorus and extending all the way up to the angle of Hiss. During this process the posterior aspect of the stomach was mobilized from the underlying peritoneum and the posterior aspect of the stomach was well exposed. With the greater curvature of the stomach exposed from within 4-6 cm of the pylorus and extending to the angle of Hiss, which also included the posterior stomach, a 40 Colombian standard template passed under direct vision down the esophagus, stomach, and into the first part of the duodenum by the anesthesia provider and under direct guidance and visualization by me,via the laparoscopy.. Using the template 40 Colombian aligned along the lesser curvature of the stomach and all the way to the first part of the Duodenum,the 40 Colombian Bougie was used as a template the laparoscopic vertical gastric sleeve was performed starting from a point about 5 cm from the pylorus along the greater curvature.Using the Rendon Laparoscopic JESUS linear cutting stapler with Cura TVpath enforcement, a series of john were used to transect the stomach in a vertical fashion along the left side of the template. Through the entire division of the stomach using the staplers,the template was always checked to be in good place and well aligned to the lesser curvature while dividing the stomach. This was carried all the way to the angle of Hiss.Green loads were used for the distal two thirds of the stomach and Gold loads were used for the more proximal part of the stomach and the last load was blue load with reinforcement. There was some oozing towards the perisplenic adhesions towards the superior pole of the spleen hemostasis was achieved and pieces of Surgicel were applied. The staple line along the remaining tubularized stomach was tested for leaks and bleeding under direct vision as the 40 Colombian template was exchanged (and there was no evidence of blood on the tip of the template) by a standard diagnostic EGD via the mouth by my me after I scrubbed out, insufflation was achieved and the staple line submerged under saline ,meanwhile a clamp was applied distally onto the end of the tubularized stomach to allow insufflation test for leak. There was no evidence of leak .There was adequate hemostasis along the staple line.EGD was taken out at this point after deflation of the tubularized stomach. I scrubbed back in The transected partial stomach, which included the greater curvature, was removed from the peritoneum through the first 12 mm trocar site, and was sent for permanent pathology Prior to closure of the fascia. A final look laparoscopy identified no injuries, there was mild oozing at the fat pad at the GE junction and 5 m clips were appllied also onto the staple line of the conduit. An interrupted #1 PDS suture on a granny needle suture passer was used to close the right epigastric and the other 12 mm trocar left of the midline fascial defects under direct visualization.The other trocars were removed under direct vision and no evidence of bleeding was identified. The pneumoperitoneum was decompressed.All skin incisions were irrigated with saline, then closed with john, followed by application of sterile dressings.The patient was extubated and taken to the recovery room with normal vital signs. The extraction trocar incision site was approximated with skin john but in between I left intentionally open for packing as there was some spillage from the gastric contents. All counts of instruments,sponges and needles were completed at the end of the procedure I was present for the whole entire procedure
[2020-10-14 13:03] LABS: Glucose Point of Care 223 mg/dL (70-110)
[2020-10-14] MEDS: insulin regular-human 100 units/1 mL 10 UNIT IVP (13:05)
--- NOTE | 2020-10-14 13:18 | SUR.PHASEI ---
PT AWAKE ALERT C/O OF PAIN TO ABDOMEN PT BELCHING, ABD LARGE SOFT SEE MED GIVEN BY DR. CAMARA ORDER DILAUDID 0.5MG IVP , ALSO PT RECIEVED 10 UNITS IVP REGULAR INSULIN AT 1254, FOR GLUCOSE READING OF 223. PT HAS A BENTON CATHETER TO DD YELLOW URINE NOTED STATLOCK TO RT THIGH. BILAT SCDS ON .
[2020-10-14] MEDS: HYDROmorphone 1 mg/mL INJ 1 mL 0.5 MG IVP (15:00)
--- NOTE | 2020-10-14 15:08 | PC.NURSE ---
1330- PT RECEIVED FROM PACU TO EXTENDED CARE. OXYGEN ON AT 2 LITTERS. SCD'S ON AND WORKING.
--- NOTE | 2020-10-14 15:55 | ANE.PACU2 ---
Inpatient post-anesthesia follow up: Airway intact: Yes Vital signs: Temperature 97 F Pulse Rate 105 Respiratory Rate 18 Blood Pressure 123/75 Pulse Oximetry 92 Oxygen Delivery Me thod Room Air Oxygen Flow Rate 2 Fraction of Inspir ed Oxygen Hydration adequate: Yes Nausea and vomiting: No Pain level: 3 Mental status: Baseline
--- NOTE | 2020-10-14 17:06 | PC.NURSE ---
patient received from Ayad in OPS at this time.
--- NOTE | 2020-10-14 17:13 | PC.NURSE ---
1500-PT TRANSFERRED TO ROOM [facility]. REPORT GIVEN TO LEEROY CHEW'A NURSE,. PT AMBULATED TO BED WITH ASSISTANCE FROM MYSELF AND NURSE. OXYGEN ON 2 LITTERS. WOUNDS EXAMINED BY BOTH NURSES. RED LEAKAGE NOTED FROM BIGGEST BANDAGE LEFT OF NAVAL. NURSE JEEVAN STATED SHE WOULD CHANGE DRESSING. CARE TURNED OVER.
[2020-10-14] MEDS: sodium chloride 0.9% 1,000 ML 125 ML IV (17:23)
[2020-10-14] MEDS: HYDROmorphone 1 mg/mL INJ 1 mL IVP (17:27)
[2020-10-14 18:08] LABS: Glucose Point of Care 165 mg/dL (70-110)
[2020-10-14 22:15] LABS: Glucose Point of Care 153 mg/dL (70-110)
[2020-10-15] VITALS (15 sets, daily range): BP systolic 117–145; BP diastolic 64–93; PULSE 87–110; RESP 14–20; TEMP 36.4–37.2; O2SAT 91–97
[2020-10-15] MEDS: HYDROmorphone 1 mg/mL INJ 1 mL IVP ×3 (00:59→08:35)
[2020-10-15] MEDS: sodium chloride 0.9% 1,000 ML 125 ML IV ×3 (01:00→17:05)
--- NOTE | 2020-10-15 02:58 | PC.NURSE ---
Patient received 1mg of dilaudid instead of giving morphine due to having an allergy to morphine.
[2020-10-15 02:59] LABS: Hematocrit 39.6 % (37.0-47.0)
[2020-10-15 03:42] LABS: Anion Gap 16.6 (5-19); Blood Urea Nitrogen 5 mg/dL (6-20); Calcium 8.3 mg/dL (8.5-10.5); Carbon Dioxide 21 mmol/L (22-29); Chloride 103 mmol/L (98-107); Glomerular Filtration Rate 175.9 mL/min (90-130); Glucose 161 mg/dL (65-115); Osmolality Calculated 285 mOsm/kg (285-295); Potassium 3.6 mmol/L (3.5-5.1); Sodium 137 mmol/L (136-145)
[2020-10-15] MEDS: heparin 5,000 unit/mL INJ 1 mL 5000 UNIT SUBCUT ×3 (05:07→21:08)
--- NOTE | 2020-10-15 05:47 | PM.PN ---
Subjective Subjective: Interval history: Patient overall feels well and no acute events overnight. Has been ambulating. Blood glucose under adequate control. Patient has been using her old CPAP without complications. Medications: Reviewed: Yes Vitals/I&O/Wt Last Vital Signs Temp 97.6 F 10/15/20 04:00 Pulse 88 10/15/20 04:00 Resp 18 10/15/20 05:07 BP 144/84 10/15/20 04:00 Pulse Ox 93 10/15/20 04:00 10/14/20 10/14/20 10/15/20 14:59 22:59 06:59 Intake Total 1750 / 1750 0 / 1750 1052.083 / 2802.083 Output Total 2024 / 2024 1100 / 3125 875 / 4000 Balance -275 / -275 -1100 / -1375 177.083 / -1197.917 Weight last 48 hrs Weight 275 lb Physical Exam Narrative: EXAM NARRATIVE: Patient is conscious alert oriented X3 BMI 47.2 Head and neck examination PERRLA no masses no cervical lymphadenopathy no jaundice Cardiac examination audible S1-S2 no murmurs no gallops no arrhythmias Chest is clear bilateral,abscence of Rhonchi or wheezes,no surgical emphysema Abdomen nontender except mildly at the incision site nondistended soft no organomegaly guarding or rigidity/no signs of peritonitis Extremities no cyanosis no clubbing no edema Urinary Catheter Management^: Jeffries: Cath Placed During This Visit: yes Reason for Continuing Indwelling Catheter: Perioperative Use in Selected Surgeries Urinary Catheter Date of Insertion: 10/14/20 Urinary Catheter Time of Insertion: 09:30 Data : 10/15/20 02:30 10/15/20 02:30 A&P Assessment and plan (1) Status post laparoscopic sleeve gastrectomy: Status post laparoscopic sleeve gastrectomy 10/14/2020 Encourage ambulation We will follow an upper GI study once this is cleared we will start the patient on liquid diet Continue pharmacologic DVT prophylaxis DC Jeffries catheter Incentive spirometer every hour Pharmacologic DVT prophylaxis Packing with half-inch Nu Gauze at the trocar incision site Repeat labs in the morning Continue monitoring closely patient's blood glucose Assurance and education All questions have been answered and all concerns have been addressed to patient's satisfaction. Status: Acute Attestations Medical Necessity Statement*: Patient requiring inpatient hospitalization for close monitoring of hyperglycemia, awaiting upper GI study and maintaining patient on appropriate p.o. intake Time Spent in Patient Care: (>than 50% of time spent in counselling and/or direct pt care on unit). Coding Level of Care Code Acute Recording Studio Setup Worker for Chg Fwd Diagnoses Status post laparoscopic sleeve gastrectomy Z98.84
[2020-10-15 06:19] LABS: Glucose Point of Care 156 mg/dL (70-110)
--- NOTE | 2020-10-15 08:00 | FL_ITS ---
WS: [id number] Upper GI series with Gastrografin, 10/15/2020 Clinical Data: Status Post Gastric Sleeve Comparison: None. Fluoroscopy time: 0.6 minutes. Findings: The patient swallowed the Gastrografin. There were tertiary contractions. No reflux was seen. There i s no evidence of any Gastrografin extravasation. FL/FL upper GI series 80345 Impression: Intact gastric sleeve with no fistula or extravasation.
[2020-10-15] MEDS: diatrizoate meglumine 120 mL Sol PO (08:46)
--- NOTE | 2020-10-15 10:15 | PC.CHAP ---
Pastoral Care Encounter/Spiritual Assessment Type of Contact [] Declined cook roast visit [] Patient/Family/Request visit [] Outpatient visit [] Follow-up visit [] Physician referral [] Code/Alert [x] Routine visit [] Staff referral [] Actively dying [] Patient sleeping [] Family support [] [] Out of room [] Palliative care [] [] Receiving care in room [] Pre-surgical visit [] Trauma [] Long length of stay [] ICU visit [] Other: Relational/Emotional Strength [x] Patient feels connected with others/family/visitors/staff [] Distress [] Loneliness/isolation [] Abandonment Spirituality of Patient [x] Person of Candice [] Attends Anabaptism of their Candice [] Believes in Prayer [] Reads Bible or Pentecostal materials [] There are Spiritual issues to be addressed Lumber Marker Interventions [x] Prayer [] Active listening [] Non-anxious presence [] Spiritual/emotional support [] Crisis/trauma care [] Spiritual counseling [] Bereavement support [] Provided bereavement packet [] Provided Bible/devotional materials [] Provided toy/stuffed animal, coloring book to patient or family member [] Provided Communion [] Anointing/[place] [] Salvation [x] Completed spiritual assessment [] Other: Impact on Illness or Injury [] Angry [] Fearful [] Anxious [] Often cries [] Exhaustion [] Unable to work [] Unable to attend buddhist [] Unable to walk/stand [] Unable to read [] Unable to drive [] Unable to eat/drink [] Unable to sleep [] Unable to be with family [] Patient intubated [] Other: Summary patient very tired Time spent with patient 10 min
[2020-10-15 10:58] LABS: Glucose Point of Care 157 mg/dL (70-110)
[2020-10-15] MEDS: acetaminophen 1,000 MG/100 ML PIGGYBACK 400 MG IV (12:22)
[2020-10-15] MEDS: morphine 4 mg/mL SDV 1 mL 2 MG IVP ×3 (13:12→21:08)
[2020-10-15] MEDS: diphenhydrAMINE 50 mg/mL SDV 1mL 12.5 MG IVP ×2 (13:13→21:08)
--- NOTE | 2020-10-15 13:20 | PC.NURSE ---
ambulation Pt walked 2 times around [facility].
[2020-10-15] MEDS: HYDROcodone-acetaminophen 5-325 mg Tablet 1 TAB PO (16:25)
[2020-10-15 16:48] LABS: Glucose Point of Care 182 mg/dL (70-110)
[2020-10-15] MEDS: famotidine 20 mg/2 mL INJ IVP (18:22)
--- NOTE | 2020-10-15 18:24 | PC.NURSE ---
ambulation pt walked [address] [facility].
[2020-10-15 20:59] LABS: Glucose Point of Care 160 mg/dL (70-110)
[2020-10-16] VITALS (7 sets, daily range): BP systolic 118–136; BP diastolic 70–89; PULSE 74–98; RESP 15–18; TEMP 36.6–37.3; O2SAT 94–97
[2020-10-16] MEDS: HYDROcodone-acetaminophen 5-325 mg Tablet 1 TAB PO ×2 (00:43→07:21)
[2020-10-16 02:46] LABS: Hematocrit 39.1 % (37.0-47.0); Hemoglobin 12.2 g/dL (11.5-15.3)
[2020-10-16 02:51] LABS: Anion Gap 17.3 (5-19); Blood Urea Nitrogen 4 mg/dL (6-20); Calcium 8.3 mg/dL (8.5-10.5); Carbon Dioxide 20 mmol/L (22-29); Chloride 103 mmol/L (98-107); Glomerular Filtration Rate 175.9 mL/min (90-130); Glucose 162 mg/dL (65-115); Osmolality Calculated 284 mOsm/kg (285-295); Potassium 3.3 mmol/L (3.5-5.1); Sodium 137 mmol/L (136-145)
[2020-10-16] MEDS: heparin 5,000 unit/mL INJ 1 mL 5000 UNIT SUBCUT ×2 (06:01→12:38)
[2020-10-16] MEDS: famotidine 20 mg/2 mL INJ IVP (06:01)
[2020-10-16] MEDS: potassium chloride oral liq 20 mEq/15 mL UDC 40 MEQ PO (06:26)
[2020-10-16 06:32] LABS: Glucose Point of Care 157 mg/dL (70-110)
[2020-10-16] MEDS: sodium chloride 0.9% 1,000 ML 75 ML IV (07:22)
--- NOTE | 2020-10-16 10:51 | P.PN_ITS ---
Subjective Subjective: Interval history: Patient overall feels well and undergone an upper GI study which has been satisfactory, patient tolerating p.o. intake and continue to have stable vital signs and good urine output. Medications: Reviewed: Yes Vitals/I&O/Wt Last Vital Signs Temp 98.1 F 10/16/20 07:55 Pulse 92 10/16/20 07:55 Resp 17 10/16/20 07:55 BP 132/89 10/16/20 07:55 Pulse Ox 95 10/16/20 07:55 10/15/20 10/16/20 10/16/20 22:59 06:59 14:59 Intake Total 1377.083 / 2777.083 1200 / 1200 Output Total 500 / 600 900 / 1500 Balance 877.083 / 2177.083 -900 / 5231.514 1067 / 1200 Physical Exam Narrative: EXAM NARRATIVE: Patient is conscious alert oriented X3 BMI 47.2 Head and neck examination PERRLA no masses no cervical lymphadenopathy no jaundice Cardiac examination audible S1-S2 no murmurs no gallops no arrhythmias Chest is clear bilateral,abscence of Rhonchi or wheezes,no surgical emphysema Abdomen nontender except mildly at the incision site nondistended soft no organomegaly guarding or rigidity/no signs of peritonitis Packing was removed bedside and the incision is clean dry and intact with no evidence of cellulitis or surgical site or drainage(extraction site of the specimen) Extremities no cyanosis no clubbing no edema Urinary Catheter Management^: Jeffries: Cath Placed During This Visit: yes, but has since been removed by the nurse Reason for Continuing Indwelling Catheter: Not indwelling catheter Urinary Catheter Date of Insertion: 10/14/20 Urinary Catheter Time of Insertion: 09:30 Date Urinary Catheter Removed: 10/15/20 Time Urinary Catheter Discontinued: 06:00 Data : 10/16/20 02:03 10/16/20 02:03 A&P Assessment and plan (1) Status post laparoscopic sleeve gastrectomy: Status post laparoscopic sleeve gastrectomy 10/14/2020 Encourage ambulation Continue pharmacologic DVT prophylaxis Incentive spirometer every hour Pharmacologic DVT prophylaxis Packing with half-inch Nu Gauze at the trocar incision site Continue monitoring closely patient's blood glucose Replacement of electrolyte Shell the patient continues to do well we will plan to send her home. Assurance and education All questions have been answered and all concerns have been addressed to patient's satisfaction. Status: Acute Attestations Medical Necessity Statement*: Patient required inpatient hospitalization for close monitoring of hyperglycemia and maintaining patient on appropriate p.o. intake. Time Spent in Patient Care: (>than 50% of time spent in counselling and/or direct pt care on unit) . Other Attestations: Patient meets the appropriate criteria for discharge home today Coding Level of Care Code Acute Petroleum Transport Driver for Chg Fwd Diagnoses Status post laparoscopic sleeve gastrectomy Z98.84
[2020-10-16 10:53] LABS: Glucose Point of Care 177 mg/dL (70-110)
[2020-10-16] MEDS: oxyCODONE 5 mg IR Tab/Cap PO (13:01)
--- NOTE | 2020-10-16 14:10 | P.DS_ITS ---
Discharge Providers Date of Admission: 10/14/20 15:08 Date of Discharge: October 16, 2020 Attending Provider at Admission: Tyrone Ji MD Attending Provider at Discharge: Tyrone Ji MD Primary Care Provider: Sandra Miller Diagnoses at Discharge Discharge Diagnosis (1) Status post laparoscopic sleeve gastrectomy: Status: Acute Reason for Visit Reason for Visit: morbid obesity Hospital Course Hospital Course Ms. Calix continues to do well postoperatively with stable vital signs and good urine output. Tolerating p.o. intake after an upper GI study which was done and showed satisfactory imaging of the sleeve without extravasation or leak or obstruction. Patient's pain is under control via oral pain medication and requiring oxycodone for breakthrough pain in addition to the hydrocodone. Hyperglycemia has been under appropriate control without complication. Packing of the wound was done and education was given to the patient. Physical Exam Narrative: EXAM NARRATIVE: Patient is conscious alert oriented X3 BMI 47.2 Head and neck examination PERRLA no masses no cervical lymphadenopathy no jaundice Cardiac examination audible S1-S2 no murmurs no gallops no arrhythmias Chest is clear bilateral,abscence of Rhonchi or wheezes,no surgical emphysema Abdomen nontender except mildly at the incision site nondistended soft no organomegaly guarding or rigidity/no signs of peritonitis Packing was removed bedside and the incision is clean dry and intact with no evidence of cellulitis or surgical site or drainage(extraction site of the specimen) Extremities no cyanosis no clubbing no edema Urinary Catheter Management^: Jeffries: Cath Placed During This Visit: yes, but has since been removed by the nurse Reason for Continuing Indwelling Catheter: Not indwelling catheter Urinary Catheter Date of Insertion: 10/14/20 Urinary Catheter Time of Insertion: 09:30 Date Urinary Catheter Removed: 10/15/20 Time Urinary Catheter Discontinued: 06:00 Discharge Data Data Completed and Pending: Completed Studies During Hospitalization Category Date Time [place] [id number] Routine Exams 10/15/20 08:00 Completed Pending at discharge Category Date Time Status ES surgery / GI i mages Routine Exams 10/14/20 08:23 Taken Basic Metabolic P viktoriya AM LABS Lab 10/17/20 04:00 Ordered Hemoglobin and He matocrit AM LABS Lab 10/17/20 04:00 Ordered Pathology: Surgic al [PTH] Routine Pth 10/14/20 11:49 Received Labs from last 24 hours 10/16/20 10/16/20 10/16/20 10:49 06:27 02:03 Hgb Hct Sodium 137 Potassium 3.3 L Chloride 103 Carbon Dioxide 20 L Anion Gap 17.3 BUN 4 L Creatinine 0.4 L GFR Calculation 175.9 H Glucose 162 H POC Glucose 177 H 157 H Calculated Osmolal ity 284 L Calcium 8.3 L 10/16/20 10/15/20 10/15/20 02:03 20:56 16:29 Hgb 12.2 Hct 39.1 Sodium Potassium Chloride Carbon Dioxide Anion Gap BUN Creatinine GFR Calculation Glucose POC Glucose 160 H 182 H Calculated Osmolal ity Calcium Addt'l Data from Hospital Stay: Upper GI study showed intact gastric sleeve with no fistula or extravasation. Vitals: Last Vital Signs Temp 97.9 F 10/16/20 11:21 Pulse 74 10/16/20 11:21 Resp 18 10/16/20 13:01 BP 136/74 10/16/20 11:21 Pulse Ox 97 10/16/20 11:21 Discharge Plan Discharge Patient Disposition: Home Condition: Stable Prescriptions: New Transderm-Scop 1 mg over 3 days patch 3 day 1 patch transdermal Q3D PRN (Reason: nausea and vomiting) Qty: 4 RF: 2 oxycodone 5 mg tablet 5 mg PO Q6H PRN (Reason: pain) Qty: 28 RF: 0 Zofran 4 mg tablet 4 mg PO Q8H PRN (Reason: nausea and vomiting) 30 Days Qty: 120 RF: 1 Continued atorvastatin 10 mg tablet 10 mg PO DAILY RF: 0 Levemir U-100 Insulin 100 unit/mL solution 30 unit SUBCUT BID RF: 0 lisinopril 10 mg tablet 10 mg PO DAILY RF: 0 Narcan 4 mg/actuation spray,non-aerosol 4 mg INTRANASAL Q2M PRN (Reason: OVERDOSE) RF: 0 insulin aspart U-100 [Novolog U-100 Insulin aspart] 100 unit/mL solution 8 unit SUBCUT DAILY RF: 0 glucagon HCl 1 mg/mL recon soln 1 mg SUBCUT DAILY PRN (Reason: hypoglycemia) RF: 0 betamethasone valerate 0.1 % cream 1 applic TOPICAL BID PRN (Reason: Skin Irritation) RF: 0 gabapentin 800 mg tablet 800 mg PO TID RF: 0 Bevespi Aerosphere 9-4.8 mcg HFA aerosol inhaler 2 puff inhalation BID RF: 0 methocarbamol [Robaxin-750] 750 mg tablet 750 mg PO BID Qty: 60 RF: 2 hydrocodone-acetaminophen 5-325 mg tablet 1 tab PO TID 30 Days Qty: 90 RF: 0 duloxetine 60 mg capsule,delayed release(DR/EC) 60 mg PO DAILY Qty: 30 RF: 2 duloxetine 30 mg capsule,delayed release(DR/EC) 30 mg PO DAILY Qty: 30 RF: 2 pantoprazole 40 mg tablet,delayed release (DR/EC) 40 mg PO DAILY 30 Days Qty: 30 RF: 0 Victoza 2-Jun 0.6 mg/0.1 mL (18 mg/3 mL) Pen Injector 1.8 mg SUBCUT DAILY RF: 0 metformin 1,000 mg tablet 1,000 mg PO BID RF: 0 fenofibrate 54 mg Tablet 54 mg PO DAILY RF: 0 meclizine 25 mg tablet 25 mg PO QID PRN (Reason: dizziness) Qty: 30 RF: 0 Discharge Orders: Discharge Order (Routine); Ordered 10/16/20 Ordered By: Tyrone Ji Referrals: Tyrone Ji MD [Physician] - (Return to bariatric surgery office on Tuesday, October 22 at 1 PM.) Sandra Miller PA [Primary Care Provider] - (First available appointment preferred to be within 1 week to monitor hyperglycemia monitoring and management) Discharge Diet: As Directed Discharge Activity: Limit activity as instructed Patient Instructions: Opioid Safety Activity Restrictions/Additional Instructions: 1. Patient can shower after 48 hours from surgery 2.Wound packing daily with half-inch Nu Gauze wet-to-dry followed by dry dressing 3. Up and walking as tolerated 4. Do not lift more than 5 pounds first 2 weeks after surgery and not more than 25 pounds 6 to 8 weeks after surgery. 5. Do not operate heavy machinery or drive while using pain medications. 6.Contact the office or return to the ER for worsening nausea vomiting fevers or chills, or noticing any redness around incision sites or discharge. 7. Watch for signs of hypoglycemia 8. Avoid constipation Discharge Attestations Time Spent in Discharge Care*: greater than 30 min Specific Discharge Activities: educating patient and educating and/or supporting family/caregiver Status at Discharge: Cognitive status at discharge: cognitively intact , Behavioral status at discharge: cooperative , Functional status at discharge: independent ambulation Overall status at discharge: patient is progressing back to baseline Quality Metrics Clinical Quality Measures During this hospital stay, did patient experience: None Coding Level of Care Code Acute Chg FW DC note Diagnoses Status post laparoscopic sleeve gastrectomy Z98.84
== END 2020-10-16 15:28 | disposition home or self-care (01) ==
LOC: MEDSURG 15:09
PROVIDERS: Admitting Provider Surgery; PCP Physician Assistant; Visit Provider Surgery
PROC: 0DB64Z3 Excision of Stomach, Percutaneous Endoscopic Approach, Vertical (ICD-10-PCS; CPT 43775; principal; 2020-10-14 08:45)
PROC: 0DJ08ZZ Inspection of Upper Intestinal Tract, Via Natural or Artificial Opening Endoscopic (ICD-10-PCS; CPT 43235; 2020-10-14 08:45)
DX: E66.01 Morbid (severe) obesity due to excess calories (principal); Z68.42 Body mass index [BMI] 45.0-49.9, adult; K21.9 Gastro-esophageal reflux disease without esophagitis; J44.9 Chronic obstructive pulmonary disease, unspecified; I10 Essential (primary) hypertension; E11.9 Type 2 diabetes mellitus without complications; M79.7 Fibromyalgia; E78.00 Pure hypercholesterolemia, unspecified; E28.2 Polycystic ovarian syndrome; Z87.891 Personal history of nicotine dependence
CPT/HCPCS: 43775; 36415; 36416; 74240; 80048; 81025; 82962; 85014; 85018; 88309; 96365; 96372; 96374; C9113; C9290; G0378; J0330; J0690; J1100; J1170; J1200; J1644; J1815; J2270; J2405; J2704; J2710; J3010; J3490; J7030; Q9963

== ENCOUNTER → 2020-11-13 09:01 | Outpatient (BNVA) | payer MEDICAID, SELFPAY | PROVIDERS: PCP Physician Assistant; Visit Provider Anesthesiology Pain Medicine | DX: M51.36 Other intervertebral disc degeneration, lumbar region (principal); M47.816 Spondylosis without myelopathy or radiculopathy, lumbar region; E66.9 Obesity, unspecified; Z79.891 Long term (current) use of opiate analgesic | CPT/HCPCS: 99214 ==

== ENCOUNTER → 2020-12-08 10:39 | Outpatient (BNVA) | payer MEDICAID, SELFPAY | PROVIDERS: PCP Physician Assistant; Visit Provider Anesthesiology Pain Medicine | DX: G89.29 Other chronic pain (principal); M47.816 Spondylosis without myelopathy or radiculopathy, lumbar region; M51.36 Other intervertebral disc degeneration, lumbar region; M25.512 Pain in left shoulder; E66.9 Obesity, unspecified; Z79.891 Long term (current) use of opiate analgesic; Z87.891 Personal history of nicotine dependence; Z68.41 Body mass index [BMI] 40.0-44.9, adult | CPT/HCPCS: 20610; 99214; J1030; J3490 ==

== ENCOUNTER → 2021-01-13 09:46 | Outpatient (BNVA) | payer MEDICAID, SELFPAY | PROVIDERS: PCP Physician Assistant; Visit Provider Anesthesiology Pain Medicine | DX: G89.29 Other chronic pain (principal); M51.36 Other intervertebral disc degeneration, lumbar region; M47.816 Spondylosis without myelopathy or radiculopathy, lumbar region; E66.9 Obesity, unspecified; M25.512 Pain in left shoulder; Z68.41 Body mass index [BMI] 40.0-44.9, adult; Z79.891 Long term (current) use of opiate analgesic | CPT/HCPCS: 99214 ==

== ENCOUNTER 2021-01-15 07:10 | Outpatient (CLI) | payer MEDICAID, SELFPAY ==
[2021-01-15 07:05] VITALS: BP 118/82; PULSE 91; RESP 20; TEMP 36.7; O2SAT 97; BMI 40.8
[2021-01-15 08:10] VITALS: BP 125/84; PULSE 72; RESP 18; O2SAT 93
[2021-01-15 09:11] VITALS: BP 125/91; PULSE 91; RESP 16; TEMP 36.8; O2SAT 97
== END 2021-01-15 07:11 | disposition home or self-care (01) ==
LOC: OPS 07:13
PROVIDERS: PCP Physician Assistant; Visit Provider Nurse Practitioner
DX: U07.1 COVID-19 (principal)

== ENCOUNTER 2021-02-03 11:47 | Outpatient (CLI) | payer MEDICAID, SELFPAY ==
[2021-02-03 13:10] LABS: Alanine Aminotransferase 24 U/L (0-33); Albumin Level 4.5 g/dL (3.5-5.2); Alkaline Phosphatase 78 IU/L (35-105); Anion Gap 15.9 (5-19); Aspartate Amino Transferase 24 U/L (0-32); Blood Urea Nitrogen 7 mg/dL (6-20); Calcium 9.5 mg/dL (8.5-10.5); Carbon Dioxide 23 mmol/L (22-29); Chloride 100 mmol/L (98-107); Cholesterol 161 mg/dL (0-200); Ferritin 389 ng/mL (15-150); Globulin 3.7 g/dL (1.3-4.6); Glucose 237 mg/dL (65-115); HDL Cholesterol 46 mg/dL (60-100); Iron 90 ug/dL (37-145); LDL Cholesterol Calculated 78 mg/dL (50-129); Magnesium 1.8 mg/dL (1.7-2.3); Osmolality Calculated 286 mOsm/kg (285-295); Percent Saturation 27.8 % (20-50); Phosphorus 3.2 mg/dL (2.5-4.5); Potassium 3.9 mmol/L (3.5-5.1); Sodium 135 mmol/L (136-145); Thyroid Stimulating Hormone 0.56 uIU/mL (0.27-4.20); Total Bilirubin 0.5 mg/dL (0.15-1.2); Total Iron Binding Capacity 323 mcg/dl; Total Protein 8.2 g/dL (6.6-8.7); Triglycerides 183 mg/dL (0-150); Unsaturated Iron Binding 233 ug/dL (112-347); Vitamin B12 301 pg/mL (232-1245)
[2021-02-03 13:19] LABS: INR 0.99 (0.8-1.2)
[2021-02-03 13:21] LABS: Basophils % 0.5 %; Eosinophils # 0.1 10^3/uL (0.0-0.8); Eosinophils % 1.3 %; Hematocrit 43.4 % (37.0-47.0); Hemoglobin 14.1 g/dL (11.5-15.3); Lymphocytes # 3.5 10^3/uL (0.8-4.8); Lymphocytes % 41.4 %; Mean Corpuscular HGB Conc 32.5 g/dL (30.0-36.0); Mean Corpuscular Hemoglobin 31.3 pg (28.0-34.0); Mean Corpuscular Volume 96.4 fl (81-99); Mean Platelet Volume 11.9 fL (7.4-10.4); Monocytes # 0.6 10^3/uL (0.2-0.9); Monocytes % 6.5 %; Neutrophils # 4.27 10^3/uL (1.8-7.7); Neutrophils % 50.2 %; Nucleated Red Blood Cells % 0 %; Platelet Count 166 10^3/cmm (130-400); Red Cell Distribution Width 13.6 % (12.1-15.1); White Blood Count 8.5 10^3/uL (4.0-10.0)
[2021-02-03 13:37] LABS: Calcium 9.3 mg/dL (8.5-10.5); Folate Level 15.6 ng/mL (4.8-37.3); Parathyroid Hormone 43.9 pg/mL (15-65)
== END 2021-02-03 11:48 | disposition home or self-care (01) ==
LOC: LAB 11:50
PROVIDERS: PCP Physician Assistant; Visit Provider Surgery
DX: E88.81 Metabolic syndrome and other insulin resistance (principal)
CPT/HCPCS: 36415; 80053; 80061; 82310; 82607; 82728; 82746; 83540; 83550; 83735; 83970; 84100; 84443; 85014; 85018; 85610

== ENCOUNTER 2021-02-08 22:29 | Emergency (ER) | payer MEDICAID, SELFPAY ==
[2021-02-08 22:41] VITALS: BP 133/83; PULSE 104; RESP 22; TEMP 36.7; O2SAT 98; BMI 41.3
--- NOTE | 2021-02-08 22:51 | W.ED.NAVMDI ---
HPI - Nausea/Vomiting/Diarrhea General: Chief complaint: Nausea/Vomiting/Diarrhea Stated complaint: n/v post eating bad mushrooms Time Seen by Provider: 02/08/21 22:45 History of Present Illness: HPI Narrative: 40-year-old female comes in this evening for concerns of ingestion of poisonous mushrooms. Identification of mushrooms and that being Colton o'lantern mushrooms. Patient appears well. Patient does have a history of gastric sleeve. Associated nausea: Yes Associated symtoms: Reports nausea Review of Systems General: Reports: 10 or more systems reviewed and unremarkable except in HPI and below GI: Reports: nausea and vomiting [facility] ED PFSH: Medical History Diabetes Fibromyalgia Hypercholesterolemia Hypertension Obesity Polycystic ovarian syndrome Surgical History H/O section x 2 H/O dilation and curettage H/O excision of dermoid cyst 04/02/19 FINAL DIAGNOSIS Skin, right thigh, excision: Benign skin with dermal fibrosis and mild chronic inflammation Comment- The changes noted microscopically are consistent with a history of a cyst which has a ruptured and caused fibrosis. No malignancy is identified. Edited by: 04/03/19 - 1055 CHIRAG H/O excision of mass infected sebaceous cyst thigh History of appendectomy History of excision of pilonidal cyst 05/10/18 FINAL DIAGNOSIS Skin and soft tissue, perineal, cyst excision: 1. Epidermal cyst with? ?intense, surrounding mixed inflammation and histiocytic giant cell reaction. Edited by: 05/12/18 - [id number] MORGI Status post laparoscopic sleeve gastrectomy Family History Other Diabetes Heart disease Denies family history of Anesthesia complication Bleeding disorder Social History Quit status (tobacco): has quit using tobacco Second hand smoke exposure: Yes Alcohol intake: never Household members: spouse Marital status: Current occupational status: disabled History of recent travel: No Female Reproductive History: Date of last menstrual period: 08/26/20 Physical Exam Const: COMMON NORMALS: no acute distress and patient oriented x3 GENERAL APPEARANCE: cooperative HENMT: COMMON NORMALS: normocephalic and Normal external nose present HEAD & SCALP: normal to inspection and normocephalic NOSE: Normal external nose present MOUTH: Normal oral and palatal mucosa present THROAT: posterior oropharynx normal Eye: GENERAL EYE: appearance normal, both eyes and all related structures Neck/C-Spine: COMMON NORMALS: full ROM Lymph: LYMPHATIC: no lymphadenopathy noted Chest: COMMONS NORMALS: normal inspection of the chest Resp: COMMON NORMALS: normal respiratory effort EFFORT & INSPECTION: Yes able to speak in complete sentences Cardio: COMMON NORMALS: regular rate and regular rhythm RATE: regular rate RHYTHM: regular rhythm GI: COMMON NORMALS: Soft to palpation PALPATION: Yes Soft to palpation and Yes Tenderness to palpation present (GI) (general) Extremity: COMMON NORMALS: normal to inspection Neuro: COMMON NORMALS: patient oriented x3 and moves all extremities Psych: COMMON NORMALS: mental status grossly normal and cooperative Skin: COMMON NORMALS: no rashes or lesions noted GENERAL SKIN EXAM: no rashes or lesions noted Course Vital Signs: Vital signs: Vital Signs Temperature 98.1 F 02/08/21 22:41 Pulse Rate 84 02/09/21 00:02 Respiratory Rate 23 H 02/09/21 00:02 Blood Pressure 138/98 02/09/21 00:02 Pulse Oximetry 95 02/09/21 00:02 MDM - Nausea/Vomiting/Diarrhea MDM Narrative: Medical decision making narrative: Patient comes in today for complaints of nausea and vomiting after eating some unknown mushrooms. The mushrooms seem to be Colton o'lantern mushrooms which are toxic. Patient reports nausea and vomiting almost 30 minutes after ingestion. On exam patient appears mildly unwell but not toxic. Respirations are even lungs are clear to auscultation. Differential diagnosis includes food poisoning, gastroenteritis, pancreatitis. Laboratory values noted some mild increase in white blood cells and hemoglobin adequate. CMP was unremarkable. We discussed patient with poison control and they recommended supportive care and fluids. Patient was infused with 1 L of IV fluids and treated with antiemetics. Patient felt better after treatment and was released to home with follow-up. Lab Data: Labs: Lab Results 02/08/21 02/08/21 23:40 23:40 WBC 14.6 10^3/uL H 10 ^3/uL (4.0-10.0) RBC 5.17 10^6/uL 10^6 /uL (4.1-5.3) Hgb 16.0 g/dL H g/dL (11.5-15.3) Hct 48.6 % H % (37.0-47.0) MCV 94.0 fl fl (81-99) MCH 30.9 pg pg (28.0-34.0) MCHC 32.9 g/dL g/dL (30.0-36.0) RDW 13.4 % % (12.1-15.1) Plt Count 220 10^3/cmm 10^3 /cmm (130-400) MPV 11.4 fL H fL (7.4-10.4) Neut % (Auto) 61.2 % % Lymph % (Auto) 30.7 % % [place] % (Auto) 6.1 % % Eos % (Auto) 1.1 % % Baso % (Auto) 0.4 % % Neut # (Auto) 8.93 10^3/uL H 10 ^3/uL (1.8-7.7) Lymph # (Auto) 4.5 10^3/uL 10^3/ uL (0.8-4.8) [place] # (Auto) 0.9 10^3/uL 10^3/ uL (0.2-0.9) Eos # (Auto) 0.2 10^3/uL 10^3/ uL (0.0-0.8) Baso # (Auto) 0.1 10^3/uL 10^3/ uL (0.0-0.1) Nucleated RBC % (a uto) 0 % % Nucleated RBCs # 0.0 /100WBC /100W BC Sodium 137 mmol/L mmol/L (136-145) Potassium 4.7 mmol/L mmol/L (3.5-5.1) Chloride 100 mmol/L mmol/L (98-107) Carbon Dioxide 22 mmol/L mmol/L (22-29) BUN 11 mg/dL mg/dL (6-20) Creatinine 0.5 mg/dL mg/dL (0.5-0.9) Calculated Osmolal ity 291 mOsm/kg mOsm/ kg (285-295) Calcium 10.0 mg/dL mg/dL (8.5-10.5) Total Bilirubin 0.5 mg/dL mg/dL (0.15-1.2) AST 29 U/L U/L (0-32) ALT 30 U/L U/L (0-33) Alkaline Phosphata se 80 IU/L IU/L (35-105) Total Protein 8.7 g/dL g/dL (6.6-8.7) Albumin 4.8 g/dL g/dL (3.5-5.2) Globulin 3.9 g/dL g/dL (1.3-4.6) Discharge Plan Discharge Patient Disposition: Home Clinical Impression: Food poisoning Condition: Stable Prescriptions: No Action ursodiol 300 mg capsule 300 mg PO BID Qty: 60 RF: 11 All Day Allergy (cetirizine) 10 mg capsule 10 mg PO DAILY PRNRF: 0 buspirone 5 mg tablet 5 mg PO BID RF: 0 hydrocodone-acetaminophen 5-325 mg tablet 1 tab PO BID PRN (Reason: pain ) 30 Days Qty: 60 RF: 0 atorvastatin 10 mg tablet 10 mg PO DAILY RF: 0 Levemir U-100 Insulin 100 unit/mL solution 30 unit SUBCUT BID RF: 0 lisinopril 10 mg tablet 10 mg PO DAILY RF: 0 Narcan 4 mg/actuation spray,non-aerosol 4 mg INTRANASAL Q2M PRN (Reason: OVERDOSE) RF: 0 insulin aspart U-100 [Novolog U-100 Insulin aspart] 100 unit/mL solution 8 unit SUBCUT DAILY RF: 0 glucagon HCl 1 mg/mL recon soln 1 mg SUBCUT DAILY PRN (Reason: hypoglycemia) RF: 0 betamethasone valerate 0.1 % cream 1 applic TOPICAL BID PRN (Reason: Skin Irritation) RF: 0 gabapentin 800 mg tablet 800 mg PO TID RF: 0 Bevespi Aerosphere 9-4.8 mcg HFA aerosol inhaler 2 puff inhalation BID RF: 0 methocarbamol [Robaxin-750] 750 mg tablet 750 mg PO BID Qty: 60 RF: 2 duloxetine 60 mg capsule,delayed release(DR/EC) 60 mg PO DAILY Qty: 30 RF: 2 duloxetine 30 mg capsule,delayed release(DR/EC) 30 mg PO DAILY Qty: 30 RF: 2 Victoza 2-Jun 0.6 mg/0.1 mL (18 mg/3 mL) Pen Injector 1.8 mg SUBCUT DAILY RF: 0 Transderm-Scop 1 mg over 3 days patch 3 day 1 patch transdermal Q3D PRN (Reason: nausea and vomiting) Qty: 4 RF: 2 Zofran 4 mg tablet 4 mg PO Q8H PRN (Reason: nausea and vomiting) 30 Days Qty: 120 RF: 1 metformin 1,000 mg tablet 1,000 mg PO BID RF: 0 fenofibrate 54 mg Tablet 54 mg PO DAILY RF: 0 meclizine 25 mg tablet 25 mg PO QID PRN (Reason: dizziness) Qty: 30 RF: 0 Discharge Orders: Discharge ED (Routine); Ordered 02/09/21 Ordered By: Darryl Gruber Referrals: Sandra Miller PA [Primary Care Provider] - Discharge Diet: Usual diet Discharge Activity: Increase activity as tolerated Patient Instructions: Food Poisoning (ED), Opioid Safety Activity Restrictions/Additional Instructions: Home and rest. Drink plenty of fluids. Follow-up with primary care. Coding Level of Care Code ED Telecommunications Field Technician for Chg Fwd Exam Comprehensive
--- NOTE | 2021-02-08 23:07 | PC.NURSE ---
While setting patient up for her I.V. , I asked the patient where she would like her I.V. The patient states that she usually gets her I.V. in her right hand. I said okay and started setting patient up for I.V. As the provider was in the room I tried to start the I.V. in her right hand. The patient screamed and pulled away from the needle, I said be careful not to pull away, because it pulls the needle out. She began to yell at me and said it was hurting, I said okay but I am not moving anything right now. The patient became angrier and angrier and started yelling at me and said that I was being judgmental about and and was looking down on her like she was stupid for eating the wrong kind of mushroom. I said , I have not said anything to you about anything. She started screaming again and said she demands a new nurse, and that her sister is a nurse here and she knows that she can demand a new nurse. I said yes, you can but I have the I.V. catheter in your hand and I need to bandage it. The patient ripped her hand away from me and stated that she would report me to the [employer] C[employer] SERVICE REPRESENTATIVE that she knew personally and that maybe she needed to get my name again. I stated to the patient that I have not been rude at all, I am trying to help you out. I explained that I am not judging her for anything and she started screaming over me to get the Fuck out of her room! . I told her that I would step out. I reported the incident to Sal Linares RN, and he explained what had happened. Sal states that he was witness to the conversation outside of the room and that he would arrange for another nurse to take the patient. I have reported patient information to Nena STEIN.
[2021-02-08] MEDS: diphenhydrAMINE 50 mg/mL SDV 1mL 25 MG IVP (23:24)
[2021-02-08] MEDS: haloperidol inj 5 mg/mL INJ 1 mL IVP (23:25)
[2021-02-08 23:56] LABS: Basophils # 0.1 10^3/uL (0.0-0.1); Basophils % 0.4 %; Eosinophils # 0.2 10^3/uL (0.0-0.8); Eosinophils % 1.1 %; Hematocrit 48.6 % (37.0-47.0); Lymphocytes # 4.5 10^3/uL (0.8-4.8); Lymphocytes % 30.7 %; Mean Corpuscular HGB Conc 32.9 g/dL (30.0-36.0); Mean Corpuscular Hemoglobin 30.9 pg (28.0-34.0); Mean Platelet Volume 11.4 fL (7.4-10.4); Monocytes # 0.9 10^3/uL (0.2-0.9); Monocytes % 6.1 %; Neutrophils # 8.93 10^3/uL (1.8-7.7); Neutrophils % 61.2 %; Nucleated Red Blood Cells % 0 %; Platelet Count 220 10^3/cmm (130-400); Red Blood Count 5.17 10^6/uL (4.1-5.3); Red Cell Distribution Width 13.4 % (12.1-15.1); White Blood Count 14.6 10^3/uL (4.0-10.0)
[2021-02-09 00:02] VITALS: BP 138/98; PULSE 84; RESP 23; O2SAT 95
[2021-02-09] MEDS: sodium chloride 0.9% 1,000 ML 999 ML IV (00:11)
[2021-02-09] MEDS: ondansetron 2 mg/ML SDV 2 mL 4 MG IVP (00:11)
[2021-02-09 00:26] LABS: Alanine Aminotransferase 30 U/L (0-33); Albumin Level 4.8 g/dL (3.5-5.2); Alkaline Phosphatase 80 IU/L (35-105); Anion Gap 19.7 (5-19); Aspartate Amino Transferase 29 U/L (0-32); Blood Urea Nitrogen 11 mg/dL (6-20); Carbon Dioxide 22 mmol/L (22-29); Chloride 100 mmol/L (98-107); Globulin 3.9 g/dL (1.3-4.6); Glomerular Filtration Rate 135.3 mL/min (90-130); Glucose 231 mg/dL (65-115); Osmolality Calculated 291 mOsm/kg (285-295); Potassium 4.7 mmol/L (3.5-5.1); Sodium 137 mmol/L (136-145); Total Bilirubin 0.5 mg/dL (0.15-1.2); Total Protein 8.7 g/dL (6.6-8.7)
[2021-02-09 00:41] VITALS: BP 130/88; PULSE 85; RESP 18; O2SAT 98
== END 2021-02-09 00:44 | disposition home or self-care (01) ==
PROVIDERS: Emergency Provider Nurse Practitioner Family; PCP Physician Assistant
DX: A05.9 Bacterial foodborne intoxication, unspecified (principal); Z79.4 Long term (current) use of insulin; E11.9 Type 2 diabetes mellitus without complications; I10 Essential (primary) hypertension; Z87.891 Personal history of nicotine dependence
CPT/HCPCS: 80053; 85025; 96361; 96374; 96375; 99283; J1200; J1630; J2405; J7030

== ENCOUNTER → 2021-02-12 09:59 | Outpatient (BNVA) | payer MEDICAID, SELFPAY | PROVIDERS: PCP Physician Assistant; Visit Provider Anesthesiology Pain Medicine | DX: G89.29 Other chronic pain (principal); M47.816 Spondylosis without myelopathy or radiculopathy, lumbar region; M51.36 Other intervertebral disc degeneration, lumbar region; M54.12 Radiculopathy, cervical region; E66.9 Obesity, unspecified; I10 Essential (primary) hypertension; Z87.891 Personal history of nicotine dependence; Z79.891 Long term (current) use of opiate analgesic; Z68.41 Body mass index [BMI] 40.0-44.9, adult | CPT/HCPCS: 99214 ==

== ENCOUNTER → 2021-03-04 08:43 | Outpatient (BNVA) | payer MEDICAID, SELFPAY | PROVIDERS: PCP Physician Assistant; Visit Provider Anesthesiology Pain Medicine | DX: M51.36 Other intervertebral disc degeneration, lumbar region (principal); M47.816 Spondylosis without myelopathy or radiculopathy, lumbar region; M54.12 Radiculopathy, cervical region; E66.9 Obesity, unspecified; Z68.41 Body mass index [BMI] 40.0-44.9, adult; Z79.891 Long term (current) use of opiate analgesic | CPT/HCPCS: 99214 ==

== ENCOUNTER 2021-03-04 09:39 | Outpatient (CLI) | payer MEDICAID, SELFPAY ==
--- NOTE | 2021-03-04 09:43 | XR_ITS ---
WS: [id number] CERVICAL SPINE TECHNIQUE: 3 views of the cervical spine CLINICAL INFORMATION: M54.12 - Radiculopathy, cervical region COMPARISON: None. FINDINGS: Straightening of the normal cervical lordosis. Normal C1-C2 articulation. Normal prevertebral soft ti ssues. Mild disc space narrowing C6-7. No acute fractures. Normal dens. Mild bony foraminal narrowing right C6-C7 and C7-T1. XR/XR cervical spine 4-5V [id number] IMPRESSION: 1. Straightening of the normal cervical lordosis. No acute fractures. 2. Disc space narrowing worse at C6-7. 3. Mild bony foraminal narrowing right C6-C7 and C7-T1.
== END 2021-03-04 09:40 | disposition home or self-care (01) ==
PROVIDERS: PCP Physician Assistant; Visit Provider Anesthesiology Pain Medicine
DX: M54.12 Radiculopathy, cervical region (principal)
CPT/HCPCS: 72050

== ENCOUNTER → 2021-03-30 13:30 | Outpatient (BNVA) | payer MEDICAID, SELFPAY | PROVIDERS: PCP Physician Assistant; Visit Provider Psychiatry & Neurology Psychiatry | DX: F33.2 Major depressive disorder, recurrent severe without psychotic features (principal); F43.12 Post-traumatic stress disorder, chronic; F41.1 Generalized anxiety disorder; F17.200 Nicotine dependence, unspecified, uncomplicated | CPT/HCPCS: 99204 ==

== ENCOUNTER → 2021-04-14 09:44 | Outpatient (BNVA) | payer MEDICAID, SELFPAY | PROVIDERS: PCP Physician Assistant; Visit Provider Anesthesiology Pain Medicine | DX: G89.29 Other chronic pain (principal); M54.12 Radiculopathy, cervical region; M25.512 Pain in left shoulder; M51.36 Other intervertebral disc degeneration, lumbar region; M47.816 Spondylosis without myelopathy or radiculopathy, lumbar region; E66.9 Obesity, unspecified; Z68.41 Body mass index [BMI] 40.0-44.9, adult | CPT/HCPCS: 99214 ==

== ENCOUNTER 2021-04-14 10:44 | Outpatient (CLI) | payer MEDICAID, SELFPAY ==
--- NOTE | 2021-04-14 10:53 | XR_ITS ---
WS: [email or web address] Exam: XR shoulder LT min 2V* [id number] Date/Time of Exam: 04/14/2021 10:53 AM Reason For Exam: M19.019 - Primary osteoarthritis, unspecified shoulder The projections of the shoulder reveal no fractures, anomalies, soft tissue swelling, or calcificatio ns. There is normal bony alignment. No irregularity of the bony architecture is noted. XR/XR shoulder LT min 2V* [id number] IMPRESSION: Negative left shoulder.
== END 2021-04-14 10:45 | disposition home or self-care (01) ==
PROVIDERS: PCP Physician Assistant; Visit Provider Anesthesiology Pain Medicine
DX: M19.012 Primary osteoarthritis, left shoulder (principal)
CPT/HCPCS: 73030

== ENCOUNTER → 2021-05-12 09:30 | Outpatient (BNVA) | payer MEDICAID, SELFPAY | PROVIDERS: PCP Physician Assistant; Visit Provider Anesthesiology Pain Medicine | DX: G89.29 Other chronic pain (principal); M51.36 Other intervertebral disc degeneration, lumbar region; M47.816 Spondylosis without myelopathy or radiculopathy, lumbar region; M54.12 Radiculopathy, cervical region; M25.512 Pain in left shoulder; M25.559 Pain in unspecified hip; E66.9 Obesity, unspecified; Z79.891 Long term (current) use of opiate analgesic; Z68.41 Body mass index [BMI] 40.0-44.9, adult | CPT/HCPCS: 99214 ==

== ENCOUNTER → 2021-05-20 09:43 | Outpatient (BNVA) | payer MEDICAID, SELFPAY | PROVIDERS: PCP Physician Assistant; Visit Provider Psychiatry & Neurology Psychiatry | DX: F41.1 Generalized anxiety disorder (principal); F33.2 Major depressive disorder, recurrent severe without psychotic features; F43.12 Post-traumatic stress disorder, chronic; F17.200 Nicotine dependence, unspecified, uncomplicated | CPT/HCPCS: 99214 ==

== ENCOUNTER → 2021-06-09 09:50 | Outpatient (BNVA) | payer MEDICAID, SELFPAY | PROVIDERS: PCP Physician Assistant; Visit Provider Anesthesiology Pain Medicine | DX: G89.29 Other chronic pain (principal); M51.36 Other intervertebral disc degeneration, lumbar region; M47.816 Spondylosis without myelopathy or radiculopathy, lumbar region; M54.12 Radiculopathy, cervical region; E66.9 Obesity, unspecified; M25.512 Pain in left shoulder; Z79.891 Long term (current) use of opiate analgesic; Z68.41 Body mass index [BMI] 40.0-44.9, adult | CPT/HCPCS: 99214 ==

== ENCOUNTER → 2021-06-15 13:50 | Outpatient (BNVA) | payer MEDICAID, SELFPAY | PROVIDERS: PCP Physician Assistant; Referring Provider Anesthesiology Pain Medicine; Visit Provider Specialist | DX: M25.512 Pain in left shoulder (principal) | CPT/HCPCS: 73030 ==

== ENCOUNTER → 2021-07-02 11:07 | Outpatient (BNVA) | payer MEDICAID, SELFPAY | PROVIDERS: PCP Physician Assistant; Visit Provider Anesthesiology Pain Medicine | DX: M51.36 Other intervertebral disc degeneration, lumbar region (principal); M47.816 Spondylosis without myelopathy or radiculopathy, lumbar region; M54.12 Radiculopathy, cervical region; M25.519 Pain in unspecified shoulder; E66.9 Obesity, unspecified; F17.210 Nicotine dependence, cigarettes, uncomplicated; Z68.41 Body mass index [BMI] 40.0-44.9, adult; Z79.891 Long term (current) use of opiate analgesic | CPT/HCPCS: 99214 ==

== ENCOUNTER → 2021-07-16 11:24 | Outpatient (BNVA) | payer MEDICAID, SELFPAY | PROVIDERS: PCP Physician Assistant; Visit Provider Psychiatry & Neurology Psychiatry | DX: F41.1 Generalized anxiety disorder (principal); F33.2 Major depressive disorder, recurrent severe without psychotic features; F43.12 Post-traumatic stress disorder, chronic; F17.200 Nicotine dependence, unspecified, uncomplicated | CPT/HCPCS: 99214 ==

== ENCOUNTER → 2021-07-30 13:36 | Outpatient (BNVA) | payer MEDICAID, SELFPAY | PROVIDERS: PCP Physician Assistant; Visit Provider Anesthesiology Pain Medicine | DX: M51.36 Other intervertebral disc degeneration, lumbar region (principal); M47.816 Spondylosis without myelopathy or radiculopathy, lumbar region; M54.12 Radiculopathy, cervical region; M25.512 Pain in left shoulder; E66.9 Obesity, unspecified; Z79.891 Long term (current) use of opiate analgesic; Z68.41 Body mass index [BMI] 40.0-44.9, adult; F17.210 Nicotine dependence, cigarettes, uncomplicated | CPT/HCPCS: 99214 ==

== ENCOUNTER → 2021-08-10 13:13 | Outpatient (BNVA) | payer MEDICAID, SELFPAY | PROVIDERS: PCP Physician Assistant; Visit Provider Specialist | DX: M75.82 Other shoulder lesions, left shoulder (principal); M19.012 Primary osteoarthritis, left shoulder; F17.200 Nicotine dependence, unspecified, uncomplicated | CPT/HCPCS: 99213; 99214 ==

== ENCOUNTER → 2021-08-19 09:42 | Outpatient (BNVA) | payer MEDICAID, SELFPAY | PROVIDERS: PCP Physician Assistant; Visit Provider Social Worker | DX: F41.1 Generalized anxiety disorder (principal); F33.2 Major depressive disorder, recurrent severe without psychotic features | CPT/HCPCS: 90834 ==

== ENCOUNTER → 2021-08-26 09:49 | Outpatient (BNVA) | payer MEDICAID, SELFPAY | PROVIDERS: PCP Physician Assistant; Visit Provider Social Worker | DX: F41.1 Generalized anxiety disorder (principal); F33.2 Major depressive disorder, recurrent severe without psychotic features | CPT/HCPCS: 90834 ==

== ENCOUNTER → 2021-08-27 13:00 | Outpatient (BNVA) | payer MEDICAID, SELFPAY | PROVIDERS: PCP Electrodiagnostic Medicine; Visit Provider Anesthesiology Pain Medicine | DX: M51.36 Other intervertebral disc degeneration, lumbar region (principal); M47.816 Spondylosis without myelopathy or radiculopathy, lumbar region; M54.12 Radiculopathy, cervical region; M25.519 Pain in unspecified shoulder; E66.9 Obesity, unspecified; Z68.41 Body mass index [BMI] 40.0-44.9, adult; F17.290 Nicotine dependence, other tobacco product, uncomplicated; Z79.891 Long term (current) use of opiate analgesic | CPT/HCPCS: 99214 ==

== ENCOUNTER → 2021-09-02 09:44 | Outpatient (BNVA) | payer MEDICAID, SELFPAY | PROVIDERS: PCP Electrodiagnostic Medicine; Visit Provider Social Worker | DX: F41.1 Generalized anxiety disorder (principal); F33.2 Major depressive disorder, recurrent severe without psychotic features | CPT/HCPCS: 90837; 90834 ==

== ENCOUNTER → 2021-09-08 14:26 | Outpatient (BNVA) | payer MEDICAID, SELFPAY | PROVIDERS: PCP Electrodiagnostic Medicine; Visit Provider Anesthesiology Pain Medicine | DX: E11.9 Type 2 diabetes mellitus without complications (principal); F17.290 Nicotine dependence, other tobacco product, uncomplicated; Z79.891 Long term (current) use of opiate analgesic; Z79.84 Long term (current) use of oral hypoglycemic drugs; Z79.4 Long term (current) use of insulin; M54.16 Radiculopathy, lumbar region | CPT/HCPCS: 36416; 64483; 64484; 82962; J1100; J3490 ==

== ENCOUNTER → 2021-09-30 09:49 | Outpatient (BNVA) | payer MEDICAID, SELFPAY | PROVIDERS: PCP Electrodiagnostic Medicine; Visit Provider Social Worker | DX: F41.1 Generalized anxiety disorder (principal); F33.2 Major depressive disorder, recurrent severe without psychotic features | CPT/HCPCS: 90834 ==

== ENCOUNTER → 2021-10-01 10:52 | Outpatient (BNVA) | payer MEDICAID, SELFPAY | PROVIDERS: PCP Electrodiagnostic Medicine; Visit Provider Specialist | DX: M19.012 Primary osteoarthritis, left shoulder (principal); M75.82 Other shoulder lesions, left shoulder; M51.36 Other intervertebral disc degeneration, lumbar region; M47.816 Spondylosis without myelopathy or radiculopathy, lumbar region; M54.12 Radiculopathy, cervical region; M25.519 Pain in unspecified shoulder; E66.9 Obesity, unspecified; F17.290 Nicotine dependence, other tobacco product, uncomplicated; Z79.891 Long term (current) use of opiate analgesic; Z68.39 Body mass index [BMI] 39.0-39.9, adult | CPT/HCPCS: 95886; 95908; 99214 ==

== ENCOUNTER → 2021-10-07 08:19 | Outpatient (BNVA) | payer MEDICAID, SELFPAY | PROVIDERS: PCP Electrodiagnostic Medicine; Visit Provider Specialist | DX: M75.82 Other shoulder lesions, left shoulder (principal); M19.012 Primary osteoarthritis, left shoulder; M79.602 Pain in left arm | CPT/HCPCS: 99213 ==

== ENCOUNTER → 2021-10-08 13:36 | Outpatient (BNVA) | payer MEDICAID, SELFPAY | PROVIDERS: PCP Electrodiagnostic Medicine; Visit Provider Psychiatry & Neurology Psychiatry | DX: F43.12 Post-traumatic stress disorder, chronic (principal); F33.2 Major depressive disorder, recurrent severe without psychotic features | CPT/HCPCS: 99215 ==

== ENCOUNTER → 2021-10-14 08:31 | Outpatient (BNVA) | payer MEDICAID, SELFPAY | PROVIDERS: PCP Electrodiagnostic Medicine; Visit Provider Social Worker | DX: F41.1 Generalized anxiety disorder (principal); F33.2 Major depressive disorder, recurrent severe without psychotic features | CPT/HCPCS: 90834 ==

== ENCOUNTER → 2021-11-05 13:06 | Outpatient (BNVA) | payer MEDICAID, OTHER, SELFPAY | PROVIDERS: PCP Electrodiagnostic Medicine; Visit Provider Anesthesiology Pain Medicine | DX: M51.36 Other intervertebral disc degeneration, lumbar region (principal); M47.816 Spondylosis without myelopathy or radiculopathy, lumbar region; M54.12 Radiculopathy, cervical region; M25.519 Pain in unspecified shoulder; M17.11 Unilateral primary osteoarthritis, right knee; E66.9 Obesity, unspecified; Z68.38 Body mass index [BMI] 38.0-38.9, adult; F17.290 Nicotine dependence, other tobacco product, uncomplicated; Z79.891 Long term (current) use of opiate analgesic | CPT/HCPCS: 73560; 99214 ==

== ENCOUNTER → 2021-11-26 13:10 | Outpatient (BNVA) | payer MEDICAID, SELFPAY | PROVIDERS: PCP Electrodiagnostic Medicine; Visit Provider Anesthesiology Pain Medicine | DX: M51.36 Other intervertebral disc degeneration, lumbar region (principal); M47.816 Spondylosis without myelopathy or radiculopathy, lumbar region; M54.12 Radiculopathy, cervical region; M25.519 Pain in unspecified shoulder; M17.11 Unilateral primary osteoarthritis, right knee; E66.9 Obesity, unspecified; F17.290 Nicotine dependence, other tobacco product, uncomplicated; Z68.38 Body mass index [BMI] 38.0-38.9, adult; Z79.891 Long term (current) use of opiate analgesic | CPT/HCPCS: 99214 ==

== ENCOUNTER 2021-12-14 14:48 | Outpatient (CLI) | payer MEDICAID, SELFPAY ==
--- NOTE | 2021-12-14 15:15 | MR_ITS ---
WS: [id number] MRI LEFT SHOULDER HISTORY: pain COMPARISON: Shoulder radiograph 04/14/2021. TECHNIQUE: Multiplanar sequences of the shoulder joint are submitted. Patient was unable to remain still for the entire examination due to pain. Mild AC joint hypertrophy. Mild encroachment upon the supraspinatus muscle and tendon. Small amount o f fluid in the subacromial and subdeltoid bursa. Small osteophyte along the distal undersurface of th e acromion causing mild subacromial impingement. Biceps tendon appears to be in the bicipital groove. No muscle atrophy or edema. No rotator cuff tears are identified with certainty taking into considera tion the amount of motion artifact. Mild increased T2 signal consistent with tendinopathy in the supr aspinatus. No labral tear. MR/MR shoulder LT wo con* [id number] IMPRESSION: 1. Quality of this examination is degraded by motion artifact. Patient was elijah ble to remain still for this examination due to pain. 2. Mild AC joint hypertrophy with encroachment and deformity of the supraspina tus muscle at the level of the glenoid. 3. Small osteophyte distal undersurface of the acromion with mild subacromial impingement. 4. No rotator cuff muscle atrophy or tear identified. 5. Subacromial and subdeltoid bursitis.
== END 2021-12-14 14:49 | disposition home or self-care (01) ==
LOC: RAD 14:49
PROVIDERS: PCP Electrodiagnostic Medicine; Visit Provider Specialist
DX: M75.52 Bursitis of left shoulder (principal); M25.712 Osteophyte, left shoulder
CPT/HCPCS: 73221

== ENCOUNTER 2022-02-18 08:51 | Outpatient (CLI) | payer MEDICAID, SELFPAY ==
[2022-02-18 09:30] LABS: Basophils # 0.1 10^3/uL (0.0-0.1); Basophils % 0.7 %; Eosinophils # 0.1 10^3/uL (0.0-0.8); Eosinophils % 0.8 %; Hematocrit 41.6 % (37.0-47.0); Hemoglobin 13.8 g/dL (11.5-15.3); Lymphocytes # 2.5 10^3/uL (0.8-4.8); Lymphocytes % 32.9 %; Mean Corpuscular HGB Conc 33.2 g/dL (30.0-36.0); Mean Corpuscular Hemoglobin 31.9 pg (28.0-34.0); Mean Corpuscular Volume 96.1 fl (81-99); Mean Platelet Volume 11.4 fL (7.4-10.4); Monocytes # 0.5 10^3/uL (0.2-0.9); Monocytes % 7.2 %; Neutrophils # 4.34 10^3/uL (1.8-7.7); Nucleated Red Blood Cells % 0 %; Platelet Count 208 10^3/cmm (130-400); Red Blood Count 4.33 10^6/uL (4.1-5.3); Red Cell Distribution Width 12.8 % (12.1-15.1); White Blood Count 7.5 10^3/uL (4.0-10.0)
[2022-02-18 09:48] LABS: Estmated Average Glucose 120; Hemoglobin A1C 5.8 % (4.0-6.0)
[2022-02-18 09:56] LABS: Calcium 9.7 mg/dL (8.5-10.5); Parathyroid Hormone 24.5 pg/mL (15-65)
[2022-02-18 10:06] LABS: Folate Level 10.6 ng/mL (4.8-37.3)
[2022-02-18 10:07] LABS: Alanine Aminotransferase 20 U/L (0-33); Albumin Level 4.3 g/dL (3.5-5.2); Alkaline Phosphatase 55 U/L (35-105); Aspartate Amino Transferase 16 U/L (0-32); Blood Urea Nitrogen 15 mg/dL (6-20); Calcium 9.6 mg/dL (8.5-10.5); Carbon Dioxide 24 mmol/L (22-29); Chloride 104 mmol/L (98-107); Chol HDL Ratio 3.03 mg/dL (0.0-4.40); Cholesterol 118 mg/dL (0-200); Ferritin 338 ng/mL (15-150); Globulin 3.2 g/dL (1.3-4.6); Glomerular Filtration Rate 109.1 mL/min (90-130); Glucose 130 mg/dL (65-115); HDL Cholesterol 39 mg/dL (60-100); Iron 143 ug/dL (37-145); LDL Cholesterol Calculated 57 mg/dL (50-129); LDL HDL Ratio 1.46 RATIO (0.00-3.22); Magnesium 1.8 mg/dL (1.7-2.3); Osmolality Calculated 295 mOsm/kg (285-295); Percent Saturation 41.6 % (20-50); Sodium 141 mmol/L (136-145); Thyroid Stimulating Hormone 0.49 uIU/mL (0.27-4.20); Total Bilirubin 0.6 mg/dL (0.15-1.2); Total Iron Binding Capacity 343 mcg/dl; Total Protein 7.5 g/dL (6.6-8.7); Triglycerides 112 mg/dL (0-150); Unsaturated Iron Binding 200 ug/dL (112-347); Vitamin B12 931 pg/mL (232-1245)
[2022-02-18 10:08] LABS: Anion Gap 16.7 (5-19); Potassium 3.7 mmol/L (3.5-5.1)
[2022-02-21 14:54] LABS: Zinc Level, Serum or Plasma 75 mcg/dL (60-130)
[2022-02-24 10:39] LABS: Vitamin B1(Thiamin) Plas/Ser 8 nmol/L (8-30)
[2022-02-24 12:26] LABS: Vit D 1,25 (Oh)2, Total 49 pg/mL (18-72); Vit D2 1,25 (Oh)2 <8 pg/mL; Vit D3 1,25 (Oh)2 49 pg/mL
== END 2022-02-18 08:52 | disposition home or self-care (01) ==
PROVIDERS: PCP Electrodiagnostic Medicine; Visit Provider Surgery
DX: E88.81 Metabolic syndrome and other insulin resistance (principal)
CPT/HCPCS: 36415; 80053; 80061; 82310; 82607; 82652; 82728; 82746; 83036; 83540; 83550; 83735; 83970; 84425; 84443; 84630; 85025

== ENCOUNTER 2022-03-09 13:49 | Outpatient (CLI) | payer MEDICAID, SELFPAY ==
--- NOTE | 2022-03-09 14:30 | MR_ITS ---
WS: [id number] MRI CERVICAL SPINE NONCONTRAST HISTORY: numbness in extremity COMPARISON: None available. Technique: Multiplanar, multisequence noncontrast imaging of the cervical spine. Normal cervical alignment with no compression fracture or significant disc space narrowing. Signal within the cervical cord is normal. Visualized posterior fossa is unremarkable. Craniocervical junction, C1 and C2 relationship, odontoid process and soft tissues are normal. C2-C3: Normal. C3-C4: Normal. C4-C5: Normal. C5-C6: Normal. C6-C7: Very minimal disc bulging. No stenosis. C7-T1: Normal. Paraspinal soft tissue are normal. MR/MR cervical spin wo con* [id number] IMPRESSION: Unremarkable MRI cervical spine. No fractures or disc protrusion or stenosis.
== END 2022-03-09 13:50 | disposition home or self-care (01) ==
LOC: RAD 13:50
PROVIDERS: PCP Electrodiagnostic Medicine; Visit Provider Nurse Practitioner Family
DX: R20.0 Anesthesia of skin (principal); R20.2 Paresthesia of skin
CPT/HCPCS: 72141

== ENCOUNTER 2022-11-12 08:56 | Outpatient (CLI) | payer MEDICAID, SELFPAY ==
[2022-11-12 10:27] LABS: Free T4 Free Thyroxine 1.21 ng/dL (0.82-1.77); Thyroid Stimulating Hormone 0.37 uIU/mL (0.27-4.20)
[2022-11-13 09:34] LABS: T3 Total 109 ng/dL (76-181)
[2022-11-15 12:10] LABS: Thyroid Peroxidase Antobodies 1 IU/mL (<9)
[2022-11-15 15:11] LABS: Thyroglobulin AB <1 IU/mL (< or = 1)
[2022-11-18 13:39] LABS: TSH Receptor Binding Antibody <1.00 IU/L (< OR = 2.00)
== END 2022-11-12 08:57 | disposition home or self-care (01) ==
LOC: LAB 08:59
PROVIDERS: PCP Electrodiagnostic Medicine; Visit Provider Internal Medicine
DX: E05.90 Thyrotoxicosis, unspecified without thyrotoxic crisis or storm (principal)
CPT/HCPCS: 36415; 83516; 84439; 84443; 84480; 86376; 86800

== ENCOUNTER 2023-11-08 08:13 | Outpatient (CLI) | payer MEDICAID, SELFPAY ==
[2023-11-08 09:09] LABS: Free T4 Free Thyroxine 0.99 ng/dL (0.82-1.77); Thyroid Stimulating Hormone 1.06 uIU/mL (0.27-4.20)
[2023-11-09 10:45] LABS: T3 Total 107 ng/dL (76-181)
== END 2023-11-08 08:14 | disposition home or self-care (01) ==
LOC: LAB 08:14
PROVIDERS: PCP Electrodiagnostic Medicine; Visit Provider Internal Medicine
DX: E05.90 Thyrotoxicosis, unspecified without thyrotoxic crisis or storm (principal); E04.2 Nontoxic multinodular goiter
CPT/HCPCS: 36415; 84439; 84443; 84480

== ENCOUNTER 2023-12-12 08:09 | Outpatient (CLI) | payer MEDICAID, SELFPAY ==
--- NOTE | 2023-12-12 08:00 | NM_ITS ---
WS: [email or web address] NUCLEAR MEDICINE 24 HOUR I-123 THYROID UPTAKE INDICATION: Multiple thyroid nodules. TECHNIQUE: I-123 24 HOUR THYROID UPTAKE WITH PLANAR IMAGING. 155 UCI JOSE 123 FINDINGS: Relatively symmetric bilateral thyroid radiotracer uptake. No focal cold nodules. 24-hour thyroid uptake 35.33% at the upper end of the range. (NORMAL 24H THRYOID UPTAKE 8-35%) NM/NM thyroid uptake multi [id number] IMPRESSION: 24-hour thyroid uptake 35.33% at the upper end of the range.
== END 2023-12-12 08:10 | disposition home or self-care (01) ==
PROVIDERS: PCP Electrodiagnostic Medicine; Visit Provider Internal Medicine
DX: E04.2 Nontoxic multinodular goiter (principal); E05.90 Thyrotoxicosis, unspecified without thyrotoxic crisis or storm
CPT/HCPCS: 78014; A9516

== ENCOUNTER → 2024-01-11 10:22 | Outpatient (BNVA) | payer MEDICAID, SELFPAY | PROVIDERS: PCP Electrodiagnostic Medicine; Visit Provider Nurse Practitioner | DX: M25.522 Pain in left elbow (principal); M25.521 Pain in right elbow | CPT/HCPCS: 73080 ==

== ENCOUNTER 2024-01-24 14:57 | Outpatient (CLI) | payer MEDICAID, SELFPAY ==
[2024-01-24 15:43] LABS: Thyroid Stimulating Hormone 1.17 uIU/mL (0.27-4.20)
[2024-01-26 01:50] LABS: T3 Total 96 ng/dL (76-181)
== END 2024-01-24 14:58 | disposition home or self-care (01) ==
LOC: LAB 14:58
PROVIDERS: PCP Electrodiagnostic Medicine; Visit Provider Internal Medicine
DX: E05.90 Thyrotoxicosis, unspecified without thyrotoxic crisis or storm (principal); E04.2 Nontoxic multinodular goiter
CPT/HCPCS: 36415; 84439; 84443; 84480

== ENCOUNTER → 2024-02-29 13:13 | Outpatient (BNVA) | payer MEDICAID, SELFPAY | PROVIDERS: PCP Electrodiagnostic Medicine; Visit Provider Nurse Practitioner | DX: M25.512 Pain in left shoulder (principal); M25.511 Pain in right shoulder; M19.011 Primary osteoarthritis, right shoulder; M19.012 Primary osteoarthritis, left shoulder | CPT/HCPCS: 73030 ==

== ENCOUNTER → 2024-03-12 16:49 | Outpatient (BNVA) | payer MEDICAID, SELFPAY | PROVIDERS: PCP Electrodiagnostic Medicine; Visit Provider Nurse Practitioner | DX: G56.01 Carpal tunnel syndrome, right upper limb (principal); Z79.899 Other long term (current) drug therapy | CPT/HCPCS: 81001 ==

== ENCOUNTER 2024-03-13 08:22 | Outpatient (CLI) | payer MEDICAID, SELFPAY ==
[2024-03-13 08:47] LABS: Basophils # 0.1 10^3/uL (0.0-0.1); Basophils % 0.6 %; Eosinophils # 0.1 10^3/uL (0.0-0.8); Hematocrit 41.6 % (36-47); Lymphocytes # 4.2 10^3/uL (0.8-4.8); Lymphocytes % 34.8 %; Mean Corpuscular HGB Conc 33.7 g/dL (30-55); Mean Corpuscular Hemoglobin 31.6 pg (27-33); Mean Corpuscular Volume 93.9 fl (85-98); Mean Platelet Volume 10.7 fL (7.4-10.4); Monocytes # 0.8 10^3/uL (0.2-0.9); Monocytes % 6.4 %; Neutrophils # 6.85 10^3/uL (1.8-7.7); Neutrophils % 56.3 %; Nucleated Red Blood Cells % 0 %; Platelet Count 194 10^3/cmm (157-399); Red Blood Count 4.43 10^6/uL (3.85-5.65); Red Cell Distribution Width 12.5 % (12.1-15.1); White Blood Count 12.17 10^3/uL (3.29-11.43)
== END 2024-03-13 08:23 | disposition home or self-care (01) ==
LOC: LAB 08:23
PROVIDERS: PCP Electrodiagnostic Medicine; Visit Provider Nurse Practitioner
DX: G56.01 Carpal tunnel syndrome, right upper limb (principal)
CPT/HCPCS: 36415; 85025

== ENCOUNTER → 2024-03-27 08:35 | Outpatient (BNVA) | payer MEDICAID, SELFPAY | PROVIDERS: PCP Electrodiagnostic Medicine; Visit Provider Family Medicine | DX: Z01.818 Encounter for other preprocedural examination (principal) | CPT/HCPCS: 93005 ==

== ENCOUNTER 2024-04-05 06:45 | Day surgery (SDC) | payer MEDICAID, SELFPAY ==
[2024-04-05] VITALS (13 sets, daily range): BP systolic 117–177; BP diastolic 71–117; PULSE 7–99; RESP 16–19; TEMP 36.2–36.4; O2SAT 95–100; BMI 37.8
--- NOTE | 2024-04-05 07:02 | W.PM.OPSUD ---
Surgery/Procedure H&P Update DATE OF PROCEDURE: April 05, 2024 DATE H&P PERFORMED: 03/27/24 H&P UPDATE INFORMATION: I have reviewed H&P completed within last 30 days, I have examined patient prior to procedure, No changes to prior documentation and H&P is in [facility] EMR on date indicated PLANNED PROCEDURE: Operation Date: 04/05/24 08:15 Proposed Procedures p Carpal Tunnel Release(Right) - Heather Coleman MD Related Problem List Diagnoses (1) Right carpal tunnel syndrome:
[2024-04-05 07:21] LABS: Glucose Point of Care 206 mg/dL (70-110)
[2024-04-05] MEDS: acetaminophen 1,000 MG/100 ML PIGGYBACK 400 MG IV (07:21)
[2024-04-05] MEDS: gabapentin 300 mg Capsule PO (07:22)
[2024-04-05] MEDS: CELEcoxib 200 mg Capsule 400 MG PO (07:22)
[2024-04-05] MEDS: sodium chloride 0.9% 1,000 ML 30 ML IV (07:22)
--- NOTE | 2024-04-05 07:50 | P.ANESASSM_ITS ---
Pre-Anesthetic Assessment Height/Weight: Height 5 ft 4 in Weight 220 lb Temp Pulse Resp BP Pulse Ox O2 Del Method 97.5 F L 78 19 H 118/80 98 Room Air 04/05/24 06:57 04/05/24 06:57 04/05/24 06:57 04/05/24 06:57 04/05/24 06:57 04/05/24 06:57 Preop Diagnosis: Carpal tunnel syndrome Operation Date: 04/05/24 08:15 Proposed Procedures p Carpal Tunnel Release(Right) - Heather Coleman MD Was Beta Cly[place] taken within 24 hours: N/A Was Clonidine taken within 24 hours: N/A Last intake: Intake Last Liquid Date 04/04/24 Last Liquid Time 23:00 Last Solid Date 04/04/24 Last Solid Time 23:00 Social Tobacco and No alcohol Exam alert, oriented x 3, clear to auscultation bilaterally and regular rate & rhythm Airway Submandibular: within normal limits Cervical ROM: within normal limits Mallampati: Class II Comments: Comments: Only 5 bottom teeth, denies them being loose Anesthetic Plan ASA status: 3 Anesthesia: General Other: No prior issues with anesthesia in the past NPO since yesterday History of COPD, current smoker. DAYANA noncompliant with CPAP Insulin-dependent DM, BS 206 today Labs 03/13/2024 reviewed and acceptable for procedure Plan for general anesthesia Medications/Allergies Home Medications Medication Instructions Recorded Confirmed Last Taken Type atorvastatin 10 mg tablet 10 mg PO DAILY 05/25/19 04/04/24 04/04/24 History lisinopril 10 mg tablet 10 mg PO DAILY 05/25/19 04/04/24 04/04/24 History glucagon HCl 1 mg/mL solution for 1 mg SUBCUT DAILY PRN hypoglycemia 12/07/19 04/04/24 05/06/20 History injection fenofibrate 54 mg tablet 54 mg PO DAILY 01/16/20 04/04/24 04/04/24 History metformin 1,000 mg tablet 1,000 mg PO BID 01/16/20 04/04/24 04/04/24 History glycopyrrolate 9 mcg-formoterol 2 puff inhalation BID PRN 08/01/20 04/04/24 Unknown History 4.8 mcg HFA aerosol inhaler Shortness Of Breath Or Wheezing (InteliCloud) liraglutide 0.6 mg/0.1 mL (18 mg/3 1.8 mg SUBCUT DAILY 10/10/20 04/04/24 03/28/24 History mL) subcutaneous pen injector (Victoza 2-Jun) cetirizine 10 mg capsule (All Day 10 mg PO DAILY PRN allergies 01/13/21 04/04/24 Unknown History Allergy (cetirizine)) meclizine 12.5 mg tablet 12.5 mg PO TID PRN Dizziness 10/01/21 04/04/24 Unknown History umeclidinium 62.5 mcg-vilanterol 1 inh inhalation DAILY 10/01/21 04/04/24 04/04/24 History 25 mcg/actuation powdr for inhalation (Anoro Ellipta) gabapentin 800 mg tablet 800 mg PO TID #90 tabs 04/08/22 04/04/24 04/04/24 Rx buspirone 10 mg tablet 20 mg (2 x 10 mg) PO TID PRN 09/22/23 04/04/24 Unknown Rx anxiety 30 days #180 tabs duloxetine 60 mg capsule,delayed 60 mg PO BID 30 days #60 caps 09/22/23 04/04/24 04/04/24 Rx release trazodone 50 mg tablet 100 mg (2 x 50 mg) PO .HS PRN 09/22/23 04/04/24 Unknown Rx insomnia #60 tabs celecoxib 100 mg capsule (Celebrex) 100 mg PO BID #60 caps 02/13/24 04/04/24 03/26/24 Rx insulin detemir U-100 100 unit/mL 10 unit SUBCUT QPM 03/27/24 04/04/24 04/03/24 History subcutaneous solution (Levemir U-100 Insulin) diclofenac sodium 1 % topical gel 4 g topical QID PRN Pain 04/04/24 04/04/24 Unknown History (Voltaren Arthritis Pain) methimazole 5 mg tablet 5 mg PO BID 04/04/24 04/04/24 04/04/24 History Allergies Allergy/AdvReac Type Severity Reaction Status Date / Time No Known Allergies Allergy Verified 04/04/24 12:30 Current Medications Generic Name Dose Route Start Last Admin Trade Name Freq PRN Reason Stop Dose Admin Sodium Chloride 1,000 mls @ 30 mls/hr 04/05/24 07:00 04/05/24 07:22 Sodium Chloride 0.9% IV 04/06/24 06:59 30 mls/hr .Q24H SABINA Administration PFSH Anesthesia Medical History Positive Tinel sign Lateral epicondylitis of both elbows Psychiatric care Obesity Polycystic ovarian syndrome Diabetes Fibromyalgia Hypertension Hypercholesterolemia Surgical History Status post laparoscopic sleeve gastrectomy H/O section x 2 H/O dilation and curettage History of appendectomy History of excision of pilonidal cyst 05/10/18 FINAL DIAGNOSIS Skin and soft tissue, perineal, cyst excision: 1. Epidermal cyst with? ?intense, surrounding mixed inflammation and histiocytic giant cell reaction. Edited by: 05/12/18 - 0935 ANDERSON H/O excision of dermoid cyst 04/02/19 FINAL DIAGNOSIS Skin, right thigh, excision: Benign skin with dermal fibrosis and mild chronic inflammation Comment- The changes noted microscopically are consistent with a history of a cyst which has a ruptured and caused fibrosis. No malignancy is identified. Edited by: 04/03/19 - 1055 CHIRAG H/O excision of mass infected sebaceous cyst thigh Family History Other Diabetes Heart disease Denies family history of Anesthesia complication Bleeding disorder Social History Smoking and tobacco/nicotine status: current every day tobacco/nicotine user e- cigarettes E-Cigarette Details: vaporizer device and with nicotine E-cig/vape details: 5 mg/ week Quit status (tobacco/nicotine): has tried quititng Number of times tried to quit tobacco: 2 Alcohol intake: never Substance/Drug Use: never Household members: spouse Marital status: Current occupational status: disabled Female Reproductive History Date of last menstrual period: 03/28/24 Data Anesthesia Cardiac Studies: No Data to Display
[2024-04-05 07:57] LABS: OR HCG Qualitative Urine Negative (Negative)
[2024-04-05] MEDS: ceFAZolin 2,000 mg SDV 2000 MG IVP (08:00)
[2024-04-05] MEDS: BUPivacaine 0.5% INJ 30 mL XX (08:30)
--- NOTE | 2024-04-05 08:36 | PM.OP ---
Operative Report Date of procedure: April 05, 2024 Pre-op diagnosis: Right carpal tunnel syndrome Post-op diagnosis: Right carpal tunnel syndrome Post-op findings: Significant compression across carpal canal with compression on the median nerve Procedure done: Right carpal tunnel syndrome Implants: None Specimens removed/disposition: None Pathology: None Surgeon: Heather Coleman MD Stitcher Special Machine: None Anesthesia: General (General per LMA, ASA 3) Estimated blood loss (mL): 2 Tourniquet time (min): 12 (At 250 mmHg) IV fluids (mL): 800 Urine output (mL): 0 (No Jeffries) Complications: None Findings: As above Condition: stable Disposition: PACU (Then return to same-day surgery for discharge to home) Brief History: This 43-year-old woman presents today for right carpal tunnel release. She was seen in the office and nerve conduction studies demonstrated moderately severe entrapment of the right median nerve at the wrist with a normal left median nerve. There was also right ulnar neuropathy at the elbow. At this point, the patient wished to proceed with right carpal tunnel release. We will determine how the ulnar nerve symptoms respond to release of the carpal canal. Should she continue to have symptoms, we will further discuss that. While in the office, questions were answered. Consents were signed. Procedure: The patient was brought to the operating theater. The patient had a general anesthesia per LMA, ASA 3. The tourniquet was elevated to 250 mmHg for a total tourniquet time of 12 minutes. The patient was also given Ancef 2 g preoperatively. The arm was then prepped and draped with DuraPrep in usual fashion with the arm draped free. A surgical pause was performed. At the time, the surgical pause, we confirmed the site and side of surgery. We also confirmed the patient's identity, appropriate and timely administration of preoperative antibiotics and preoperative surgical markings. An incision was then made along the thenar crease. The incision crossed the wrist joint in a curvilinear fashion. Dissection continued through skin and soft tissues using a scalpel. The palmaris longus was identified along with the transverse carpal ligament. Each of these was released carefully to avoid injury to the median nerve. We were able to dissect gently into the carpal canal which was noted to be quite tight with significant compression across the median nerve. The nerve was visualized and was an hourglass shape. The canal was subsequently palpated to assure there was no bony encroachment upon the canal. There was a quite thickened fibrous tissue within the canal, and this was opened longitudinally as well. The canal was then palpated distally and proximally to assure that my small finger was passed easily without impingement. Finding this to be so, attention was directed to closure. The wound was irrigated with ropivacaine plain. It was then closed with 3-0 nylon in an interrupted mattress fashion. Sterile dressing was then placed consisting of Dermabond, OpSite, fluffed fluffs, sterile soft roll, and an Sotero wrap. The tourniquet was released after 12 minutes. There were no complications. There were no specimens. The procedure was well tolerated. Plan is the patient will be discharged home. Related Problem List Diagnoses (1) Right carpal tunnel syndrome:
[2024-04-05] MEDS: fentaNYL 50 mcg/mL INJ 2mL IVP (09:03)
--- NOTE | 2024-04-05 10:10 | ANE.PACU2 ---
Inpatient post-anesthesia follow up: Airway intact: Yes Vital signs: Temperature 97.2 F Pulse Rate 99 Respiratory Rate 19 Blood Pressure 117/71 Pulse Oximetry 96 Oxygen Delivery Me thod Room Air Oxygen Flow Rate 6 Fraction of Inspir ed Oxygen Hydration adequate: Yes Nausea and vomiting: No Pain level: 1 Mental status: Baseline
== END 2024-04-05 10:10 | disposition home or self-care (01) ==
PROVIDERS: PCP Electrodiagnostic Medicine; Visit Provider Specialist
PROC: (CPT 64721; principal; 2024-04-05 08:05)
DX: G56.01 Carpal tunnel syndrome, right upper limb (principal); J44.9 Chronic obstructive pulmonary disease, unspecified; G47.33 Obstructive sleep apnea (adult) (pediatric); Z91.199 Patient's noncompliance with other medical treatment and regimen due to unspecified reason; E11.9 Type 2 diabetes mellitus without complications; Z79.4 Long term (current) use of insulin; E66.9 Obesity, unspecified; Z68.37 Body mass index [BMI] 37.0-37.9, adult; M79.7 Fibromyalgia; I10 Essential (primary) hypertension; E78.00 Pure hypercholesterolemia, unspecified
CPT/HCPCS: 64721; 36416; 81025; 82962; J0131; J0690; J1100; J2405; J2704; J3010; J3490; J7030

== ENCOUNTER 2024-06-28 14:14 | Outpatient (CLI) | payer MEDICAID, SELFPAY ==
--- NOTE | 2024-06-28 14:30 | US_ITS ---
WS: [email or web address] THYROID ULTRASOUND HISTORY: Multiple thyroid nodules COMPARISON: 09/02/2022 Right lobe: 1.3 cm x 1.1 cm x 4.1 cm (w x ap x l). Volume: 2.8 cm3. Small caliber thyroid. Thyroid is decreased in size and is slightly more heterogeneous. There is no dominant mass or nodule. No colloid cyst identified. Left lobe: 1.5 cm x 1.4 cm x 4.4 cm (w x ap x l). Volume: 4.3 cm3. Normal sized gland. Colloid cyst lower pole is subcentimeter. No suspicious mass. Isthmus: 0.4 cm. US/US thyroid [id number] IMPRESSION: 1. TI-RADS 2; no suspicious masses for which FNA is recommended. 2. RIGHT lobe of the thyroid has slightly decreased in size since the prior ex am from 2022.
== END 2024-06-28 14:15 | disposition home or self-care (01) ==
PROVIDERS: PCP Electrodiagnostic Medicine; Visit Provider Internal Medicine
DX: E04.1 Nontoxic single thyroid nodule (principal); R93.89 Abnormal findings on diagnostic imaging of other specified body structures
CPT/HCPCS: 76536

== ENCOUNTER 2024-08-23 12:59 | Outpatient (CLI) | payer MEDICAID, SELFPAY ==
[2024-08-23 13:48] LABS: Free T4 Free Thyroxine 0.79 ng/dL (0.82-1.77); Thyroid Stimulating Hormone 4.66 uIU/mL (0.27-4.20)
[2024-08-24 09:00] LABS: T3 Total 105 ng/dL (76-181)
== END 2024-08-23 13:00 | disposition home or self-care (01) ==
LOC: LAB 12:59
PROVIDERS: PCP Electrodiagnostic Medicine; Visit Provider Internal Medicine
DX: E04.2 Nontoxic multinodular goiter (principal)
CPT/HCPCS: 36415; 84439; 84443; 84480

== ENCOUNTER 2025-01-07 16:07 | Outpatient (CLI) | payer MEDICAID, SELFPAY ==
--- NOTE | 2025-01-07 16:15 | US_ITS ---
WS: [id number] THYROID ULTRASOUND HISTORY: multiple thyroid nodules COMPARISON: 06/28/2024 Right lobe: 1.6 cm x 1.0 cm x 4.9 cm (w x ap x l). Volume: 3.5 cm3. Small caliber gland. Gland is difficult to visualize due to body habitus. Very slight heterogeneity but no mass identified. No increased vascularity. Left lobe: 1.6 cm x 1.2 cm x 4.8 cm (w x ap x l). Volume: 4.4 cm3. Normal sized gland. Colloid cyst in the lower pole measures 3 mm. No increased vascularity. Isthmus: 0.4 cm. US/US thyroid [id number] IMPRESSION: TI-RADS 2; no FNA recommended. No suspicious nodule or calcification.
[2025-01-07 20:18] LABS: Free T4 Free Thyroxine 1.24 ng/dL (0.82-1.77)
[2025-01-07 20:38] LABS: Thyroid Stimulating Hormone 1.38 uIU/mL (0.27-4.20)
== END 2025-01-07 16:08 | disposition home or self-care (01) ==
PROVIDERS: PCP Electrodiagnostic Medicine; Visit Provider Internal Medicine
DX: E04.2 Nontoxic multinodular goiter (principal)
CPT/HCPCS: 36415; 76536; 84439; 84443